=== PATIENT | male | born 1955 | race Caucasian/White ===

== ENCOUNTER 2023-04-10 21:05 | Inpatient (IN) | payer MEDICARE ==
--- NOTE | 2023-04-10 21:45 | ED ---
General Adult HPI <Carson Lloyd - Last Filed: 04/10/23 23:13> - General Source: patient, family, EMS, RN notes reviewed, old records reviewed Mode of arrival: EMS Limitations: no limitations <Flip Muro - Last Filed: 04/11/23 06:42> - General Chief complaint: Altered Mental Status Stated complaint: Fall Time Seen by Provider: 04/10/23 21:22 - History of Present Illness Initial comments: Patient is a 67-year-old male who presents with department for a suspected syncopal episode and unresponsiveness. Patient was at a [employer] and ate a piece of pizza. States he felt "ill" which include nausea and feeling slightly lightheaded. He stood up and then experienced a syncopal episode falling from a standing position to the ground. Patient apparently was unresponsive per and bystanders and there was concern that he was not breathing and did not have pulses. Bystanders started CPR and completed approximately 2 minutes. When EMS arrived, patient was combative, alert, orie nted and breathing on his own. He does not remember what happened other than he fell to the ground. He endorses some pain over his chest from where chest compressions were done. He also endorses the lip laceration. Unknown last tetanus. Also has a laceration to left side of his nasal bridge. His no other acute complaints at this time. States he feels improved at this time. States only significant past medical history is hypertension. Is not on blood thinners. No acute complaints at this time. No recent long distance travel l. No leg edema. No fevers, chills, cough. No AED was present and no shocks were ever administered. He was within normal limits for EMS. Patient did have u rinary incontinence. No seizure history. No history of alcohol abuse. (Flip Muro) - Related Data Allergies Allergy/AdvReac Type Severity Reaction Status Date / Time shellfish derived [Shellfish] Allergy Anaphylaxis Verified 04/10/23 21:13 Review of Systems ROS Other: All systems not noted in ROS Statement are negative. <Carson Lloyd - Last Filed: 04/10/23 23:13> ROS Other: All systems not noted in ROS Statement are negative. <Flip Muro - Last Filed: 04/11/23 06:42> ROS Statement: Those systems with pertinent positive or pertinent negative responses have been documented in the HPI. Review of Systems: CONST: Denies fever EYES: Denies blurry vision ENT: Denies nasal congestion C/V: Endorses chest wall pain RESP: Denies shortness of breath GI: Denies abdominal pain : Denies dysuria SKIN: Endorses lip laceration, nasal bridge laceration. MSK: Denies joint pain. NEURO: Denies headache (Flip Muro) Past Medical History Past Medical History: No Reported History Past Surgical History: No Surgical Hx Reported Past Psychological History: No Psychological Hx Reported Past Alcohol Use History: Occasional Past Drug Use History: Marijuana <Flip Muro - Last Filed: 04/11/23 06:42> General Exam Limitations: no limitations <Flip Muro - Last Filed: 04/11/23 06:42> - General Exam Comments Initial Comments: General: Appears in no acute distress. HEAD: Negative Bradley sign. Negative raccoon eyes. Patient does have a abrasion/skin tear to the left nasal bridge. Patient also has laceration to the right upper lip. EYES: PERRLA, EOMI, conjunctiva normal, no discharge. ENT: Hearing grossly intact, normal posterior oropharynx. False teeth present. Upper laceration of the right upper lip. RESPIRATORY: Clear breath sounds bilaterally. No wheezes, rales, or rhonchi. C/V: Regular rate and rhythm. S1 and S2 auscultated, no edema, peripheral pulses 2+ and intact throughout ABD: Abd is soft, nontender, nondistended EXT: Normal range of motion, no obvious deformity. Pelvis is stable. No midline cervical, thoracic, lumbar spine tenderness to palpation. SKIN: No rashes or lesions observed on exposed skin. Lacerations on the face. NEURO: Alert and oriented x 4. Cranial nerves II-XII intact. No focal sensory or strength deficits. GCS of 15. NIH of 0. (Flip Muro) Course Vital Signs 04/10/23 21:06 Temperature 97.6 F Pulse Rate 85 Respiratory 18 Rate Blood Pressure 150/82 Procedures - Laceration Laceration #1 Site: lip Size (cm): 3 Description: linear Depth: simple, single layer Anesthetic Used: lidocaine 1%, with epi Anesthesia Technique: nerve block Amount (mls): 2 (infraorbital) Pre-repair: wound explored, irrigated extensively, deep structures intact Type of Sutures: nylon Size of Sutures: 6-0 Number of Sutures: 7 Technique: simple, interrupted Patient Tolerated Procedure: well, no complications Laceration #2 Indication: laceration Site: face Size (cm): 1 Description: irregular Depth: simple, single layer Anesthetic Used: lidocaine 1%, with epi Anesthesia Technique: local infiltration Amount (mls): 1 Pre-repair: wound explored, irrigated extensively, deep structures intact Type of Sutures: nylon Size of Sutures: 6-0 Number of Sutures: 2 Patient Tolerated Procedure: well, no complications <Carson Lloyd - Last Filed: 04/10/23 23:13> Medical Decision Making - Lab Data Result diagrams: 04/10/23 21:29 04/10/23 21:29 <Carson Lloyd - Last Filed: 04/10/23 23:13> - Lab Data Result diagrams: 04/10/23 21:29 04/10/23 21:29 - EKG Data -: EKG Interpreted by Me <Flip Muro - Last Filed: 04/11/23 06:42> - Medical Decision Making Was pt. sent in by a medical professional or institution (, PA, [facility], urgent care, hospital, or snf...) When possible be specific @ -No Did you speak to anyone other than the patient for history (EMS, parent, family, police, friend...)? What history was obtained from this source @ -No Did you review nursing and triage notes (agree or disagree)? Why? @ -I reviewed and agree with nursing and triage notes Were old charts reviewed (outside hosp., previous admission, EMS record, old EKG, old radiological studies, urgent care reports/EKG's, snf records)? Report findings @ -No old charts were reviewed Differential Diagnosis (chest pain, altered mental status, abdominal pain women, abdominal pain men, vaginal bleeding, weakness, fever, dyspnea, syncope, headache, dizziness, GI bleed, back pain, seizure, CVA, palpatations, mental health, musculoskeletal)? @ -Differential Altered Mental Status: Hypoglycemia, DKA, hypercapnia, ETOH, overdose, CO poisoning, trauma, myxedema coma, HTN encephalopathy, infection, encephalitis, psychosis, intercranial hemorrhage, hepatic encephalopathy, meningitis, CVA, this is not meant to be an all-inclusive list EKG interpreted by me (3pts min.). @ -As above X-rays interpreted by me (1pt min.). @ -Chest x-ray reveals possible atelectasis in the left lung base. Pelvis x- ray shows no obvious acute finding. CT interpreted by me (1pt min.). @ -CT brain, C-spine shows no obvious acute intracranial process or cervical spine injury. Face CT shows no obvious acute injury. CT angiogram of the aorta reveals no evidence of PE, aortic injury or dissection. No other obvious findings. U/S interpreted by me (1pt. min.). @ -None done What testing was considered but not performed or refused? (CT, X-rays, U/S, labs)? Why? @ -None What meds were considered but not given or refused? Why? @ -None Did you discuss the management of the patient with other professionals (professionals i.e. DrJonathan, PA, [facility], lab, RT, psych nurse, health care social worker, lithopone mill worker, teacher, medical officer psychiatry, supervisor case loading)? Give summary @ -Discussed with Dr. Thorpe of ICU who accepted the patient to the ICU. Was in agreement with the plan. I spoke with cardiology on-call Dr. Chisholm was in agreement with management as well. I spoke with the admitting team, JANEL Bernal of [facility] call who accepted the patient. Was smoking cessation discussed for >3mins.? @ -No Was critical care preformed (if so, how long)? @ -yes, 35 minutes Were there social determinants of health that impacted care today? How? (Homelessness, low income, unemployed, alcoholism, drug addiction, transportation, low edu. Level, literacy, decrease access to med. care, residential, rehab)? @ -No Was there de-escalation of care discussed even if they declined (Discuss DNR or withdrawal of care, Hospice)? DNR status @ -No What co-morbidities impacted this encounter? (DM, HTN, Smoking, COPD, CAD, Cancer, CVA, ARF, Chemo, Hep., AIDS, mental health diagnosis, sleep apnea, morbid obesity)? @ -None Was patient admitted / discharged? Hospital course, mention meds given and route, prescriptions, significant lab abnormalities, going to OR and other pertinent info. @ -Patient presents as possible syncopal episode versus unresponsiveness episode versus cardiac arrest. Patient did have CPR performed at the scene by bystanders however when medical office rep arrived patient was alert and responsive. Vital signs are currently within except for limits. Only complaint is foot pain, as well as chest wall pain from the CPR. We will obtain a broad workup. Vital signs within acceptable limits. This included CT imaging of the chest and pelvis as well as brain. Patient was in agreement this plan. He will be given a 1 L fluid bolus. We'll continue with continuous cardiac monitoring. He was in agreement with this plan. EKG showed no signs of acute ischemia.Imaging unremarkable. Patient's laboratory studies reveal a leukocytosis of 24.4. Lactic acidosis of 3.8. Troponin undetectable. Remainder the labs unremarkable. Alcohol level is slightly elevated to 25. I discussed results with the patient. He remains asymptomatic. Patient's lip and face were repaired by assisting mid-level provider. He'll be admitted to the ICU due to the concern for possible out of hospital cardiac arrest. His expressed no arrhythmias documented V. tach or V. fib here. Occasional PVC seen on the monitor. Patient was agreement this plan. He is resting comfortably with no acute complaints. Due to the patient's white count and lactic acidosis, I will cover the patient for sepsis at this time. Blood cultures sent. Patient started on vancomycin and cefepime. Patient given 2 L fluid bolus and started on maintenance fluids at 130 mL an hour. Patient met sepsis criteria at 2252. Discussed with Dr. Thorpe of ICU who accepted the patient to the ICU. Was in agreement with the plan. I spoke with cardiology on-call Dr. Chisholm was in agreement with management as well. I spoke with the admitting team, JANEL Bernal of [facility] call who accepted the patient. Undiagnosed new problem with uncertain prognosis? @ -No Drug Therapy requiring intensive monitoring for toxicity (Heparin, Nitro, Insulin, Cardizem)? @ -No Were any procedures done? @ -No Diagnosis/symptom? @ -Sepsis, syncope, possible on possible out of hospital cardiac arrest Acute, or Chronic, or Acute on Chronic? @ -Acute Uncomplicated (without systemic symptoms) or Complicated (systemic symptoms)? @ -Complicated Side effects of treatment? @ -none Exacerbation, Progression, or Severe Exacerbation] @ -no Poses a threat to life or bodily function? @ -Yes Diagnosis/symptom? @ -Fall, lip laceration, nose laceration Acute, or Chronic, or Acute on Chronic? @ -Acute Uncomplicated (without systemic symptoms) or Complicated (systemic symptoms)? @ -Uncomplicated Side effects of treatment? @ -none Exacerbation, Progression, or Severe Exacerbation] @ -no Poses a threat to life or bodily function? @ -no (Flip Muro) - Lab Data Lab Results 04/10/23 04/10/23 04/10/23 Range/Units 21:29 21:29 21:29 WBC 24.4 H (3.8-10.6) k/uL RBC 5.11 (4.30-5.90) m/uL Hgb 17.0 (13.0-17.5) gm/dL Hct 49.9 (39.0-53.0) % MCV 97.6 (80.0-100.0) fL MCH 33.2 (25.0-35.0) pg MCHC 34.1 (31.0-37.0) g/dL RDW 12.5 (11.5-15.5) % Plt Count 236 (150-450) k/uL MPV 10.2 Neutrophils % 86 % Lymphocytes % 8 % Monocytes % 4 % Eosinophils % 1 % Basophils % 0 % Neutrophils # 21.0 H (1.3-7.7) k/uL Lymphocytes # 2.0 (1.0-4.8) k/uL Monocytes # 0.9 (0-1.0) k/uL Eosinophils # 0.2 (0-0.7) k/uL Basophils # 0.1 (0-0.2) k/uL PT 10.3 (10.0-12.5) sec INR 0.9 (<1.2) APTT 22.1 (22.0-30.0) sec Sodium 141 (137-145) mmol/L Potassium 3.6 (3.5-5.1) mmol/L Chloride 107 (98-107) mmol/L Carbon Dioxide 18 L (22-30) mmol/L Anion Gap 16 mmol/L BUN 19 (9-20) mg/dL Creatinine 1.27 H (0.66-1.25) mg/dL Est GFR (CKD-EPI)AfAm 68 (>60 ml/min/1.73 sqM) Est GFR (CKD-EPI)NonAf 59 (>60 ml/min/1.73 sqM) Glucose 175 H (74-99) mg/dL Lactic Ac Sepsis Rflx Plasma Lactic Acid Alvaro (0.7-2.0) mmol/L Calcium 9.0 (8.4-10.2) mg/dL Total Bilirubin 0.6 (0.2-1.3) mg/dL AST 86 H (17-59) U/L ALT 110 H (4-49) U/L Alkaline Phosphatase 84 (38-126) U/L Ammonia (<30) umol/L Troponin I (0.000-0.034) ng/mL NT-Pro-B Natriuret Pep 29 pg/mL Total Protein 7.1 (6.3-8.2) g/dL Albumin 4.5 (3.5-5.0) g/dL Urine Color Urine Appearance (Clear) Urine pH (5.0-8.0) Ur Specific Mobile (1.001-1.035) Urine Protein (Negative) Urine Glucose (UA) (Negative) Urine Ketones (Negative) Urine Blood (Negative) Urine Nitrite (Negative) Urine Bilirubin (Negative) Urine Urobilinogen (<2.0) mg/dL Ur Leukocyte Esterase (Negative) Urine Opiates Screen (NotDetected) Ur Oxycodone Screen (NotDetected) Urine Methadone Screen (NotDetected) Ur Barbiturates Screen (NotDetected) U Tricyclic Antidepress (NotDetected) Ur Phencyclidine Scrn (NotDetected) Ur Amphetamines Screen (NotDetected) U Methamphetamines Scrn (NotDetected) U Benzodiazepines Scrn (NotDetected) Urine Cocaine Screen (NotDetected) U Marijuana (THC) Screen (NotDetected) Serum Alcohol 25 mg/dL Influenza Type A (PCR) (Not Detectd) Influenza Type B (PCR) (Not Detectd) RSV (PCR) (Not Detectd) SARS-CoV-2 (PCR) (Not Detectd) 04/10/23 04/10/23 04/10/23 Range/Units 21:29 21:29 22:11 WBC (3.8-10.6) k/uL RBC (4.30-5.90) m/uL Hgb (13.0-17.5) gm/dL Hct (39.0-53.0) % MCV (80.0-100.0) fL MCH (25.0-35.0) pg MCHC (31.0-37.0) g/dL RDW (11.5-15.5) % Plt Count (150-450) k/uL MPV Neutrophils % % Lymphocytes % % Monocytes % % Eosinophils % % Basophils % % Neutrophils # (1.3-7.7) k/uL Lymphocytes # (1.0-4.8) k/uL Monocytes # (0-1.0) k/uL Eosinophils # (0-0.7) k/uL Basophils # (0-0.2) k/uL PT (10.0-12.5) sec INR (<1.2) APTT (22.0-30.0) sec Sodium (137-145) mmol/L Potassium (3.5-5.1) mmol/L Chloride (98-107) mmol/L Carbon Dioxide (22-30) mmol/L Anion Gap mmol/L BUN (9-20) mg/dL Creatinine (0.66-1.25) mg/dL Est GFR (CKD-EPI)AfAm (>60 ml/min/1.73 sqM) Est GFR (CKD-EPI)NonAf (>60 ml/min/1.73 sqM) Glucose (74-99) mg/dL Lactic Ac Sepsis Rflx Y Plasma Lactic Acid Alvaro 3.8 H* (0.7-2.0) mmol/L Calcium (8.4-10.2) mg/dL Total Bilirubin (0.2-1.3) mg/dL AST (17-59) U/L ALT (4-49) U/L Alkaline Phosphatase (38-126) U/L Ammonia 10 (<30) umol/L Troponin I <0.012 (0.000-0.034) ng/mL NT-Pro-B Natriuret Pep pg/mL Total Protein (6.3-8.2) g/dL Albumin (3.5-5.0) g/dL Urine Color Urine Appearance (Clear) Urine pH (5.0-8.0) Ur Specific Mobile (1.001-1.035) Urine Protein (Negative) Urine Glucose (UA) (Negative) Urine Ketones (Negative) Urine Blood (Negative) Urine Nitrite (Negative) Urine Bilirubin (Negative) Urine Urobilinogen (<2.0) mg/dL Ur Leukocyte Esterase (Negative) Urine Opiates Screen (NotDetected) Ur Oxycodone Screen (NotDetected) Urine Methadone Screen (NotDetected) Ur Barbiturates Screen (NotDetected) U Tricyclic Antidepress (NotDetected) Ur Phencyclidine Scrn (NotDetected) Ur Amphetamines Screen (NotDetected) U Methamphetamines Scrn (NotDetected) U Benzodiazepines Scrn (NotDetected) Urine Cocaine Screen (NotDetected) U Marijuana (THC) Screen (NotDetected) Serum Alcohol mg/dL Influenza Type A (PCR) (Not Detectd) Influenza Type B (PCR) (Not Detectd) RSV (PCR) (Not Detectd) SARS-CoV-2 (PCR) (Not Detectd) 04/10/23 04/10/23 04/11/23 Range/Units 23:18 23:41 00:35 WBC (3.8-10.6) k/uL RBC (4.30-5.90) m/uL Hgb (13.0-17.5) gm/dL Hct (39.0-53.0) % MCV (80.0-100.0) fL MCH (25.0-35.0) pg MCHC (31.0-37.0) g/dL RDW (11.5-15.5) % Plt Count (150-450) k/uL MPV Neutrophils % % Lymphocytes % % Monocytes % % Eosinophils % % Basophils % % Neutrophils # (1.3-7.7) k/uL Lymphocytes # (1.0-4.8) k/uL Monocytes # (0-1.0) k/uL Eosinophils # (0-0.7) k/uL Basophils # (0-0.2) k/uL PT (10.0-12.5) sec INR (<1.2) APTT (22.0-30.0) sec Sodium (137-145) mmol/L Potassium (3.5-5.1) mmol/L Chloride (98-107) mmol/L Carbon Dioxide (22-30) mmol/L Anion Gap mmol/L BUN (9-20) mg/dL Creatinine (0.66-1.25) mg/dL Est GFR (CKD-EPI)AfAm (>60 ml/min/1.73 sqM) Est GFR (CKD-EPI)NonAf (>60 ml/min/1.73 sqM) Glucose (74-99) mg/dL Lactic Ac Sepsis Rflx Plasma Lactic Acid Alvaro 1.5 (0.7-2.0) mmol/L Calcium (8.4-10.2) mg/dL Total Bilirubin (0.2-1.3) mg/dL AST (17-59) U/L ALT (4-49) U/L Alkaline Phosphatase (38-126) U/L Ammonia (<30) umol/L Troponin I (0.000-0.034) ng/mL NT-Pro-B Natriuret Pep pg/mL Total Protein (6.3-8.2) g/dL Albumin (3.5-5.0) g/dL Urine Color Colorless Urine Appearance Clear (Clear) Urine pH 6.0 (5.0-8.0) Ur Specific Mobile >1.050 H (1.001-1.035) Urine Protein Trace H (Negative) Urine Glucose (UA) Negative (Negative) Urine Ketones Negative (Negative) Urine Blood Negative (Negative) Urine Nitrite Negative (Negative) Urine Bilirubin Negative (Negative) Urine Urobilinogen <2.0 (<2.0) mg/dL Ur Leukocyte Esterase Negative (Negative) Urine Opiates Screen Not Detected (NotDetected) Ur Oxycodone Screen Not Detected (NotDetected) Urine Methadone Screen Not Detected (NotDetected) Ur Barbiturates Screen Not Detected (NotDetected) U Tricyclic Antidepress Not Detected (NotDetected) Ur Phencyclidine Scrn Not Detected (NotDetected) Ur Amphetamines Screen Not Detected (NotDetected) U Methamphetamines Scrn Not Detected (NotDetected) U Benzodiazepines Scrn Not Detected (NotDetected) Urine Cocaine Screen Not Detected (NotDetected) U Marijuana (THC) Screen Detected H (NotDetected) Serum Alcohol mg/dL Influenza Type A (PCR) Not Detected (Not Detectd) Influenza Type B (PCR) Not Detected (Not Detectd) RSV (PCR) Not Detected (Not Detectd) SARS-CoV-2 (PCR) Not Detected (Not Detectd) - EKG Data EKG Comments: 12-lead Electrocardiogram Interpretation Note EKG was reviewed and interpreted by myself. 12-lead ECG performed at 2112 is interpreted by me as revealing normal sinus rhythm at a rate of 91 beats per minute. Left axis deviation. NM intervals 146 ms, QRS durations 118 ms, QTc is 426 ms. Left anterior fascicular block. There were no ST or T wave abnormalities to suggest myocardial ischemia or injury. R wave progression across the precordium was satisfactory. By my interpretation this EKG is non- diagnostic for acute ischemia. 12-lead Electrocardiogram Interpretation Note EKG was reviewed and interpreted by myself. 12-lead ECG performed at 2320 is interpreted by me as revealing normal sinus rhythm at a rate of 91 beats per minute. Left axis deviation. NM interval is 151 ms, QRS duration is 118 ms, QTc is 413 ms. Left anterior fascicular block present.. There were no ST or T wave abnormalities to suggest myocardial ischemia or injury. R wave progression across the precordium was satisfactory. By my interpretation this EKG is non- diagnostic for acute ischemia. (Flip Muro) Critical Care Time Critical Care Time: Yes Total Critical Care Time: 35 <Flip Muro - Last Filed: 04/11/23 06:42> Disposition <Carson Lloyd - Last Filed: 04/10/23 23:13> Time of Disposition: 22:59 <Flip Muro - Last Filed: 04/11/23 06:42> Clinical Impression: Syncope, Cardiac arrest, Sepsis, Laceration, Fall Disposition: ADMITTED IP TO THIS HOSP Condition: Stable
[2023-04-10 21:46] LABS: Basophils # (A) 0.1 k/uL (0-0.2); Basophils % (A) 0 %; Eosinophils # (A) 0.2 k/uL (0-0.7); Eosinophils % (A) 1 %; HCT 49.9 % (39.0-53.0); Lymphocytes % (A) 8 %; MCH 33.2 pg (25.0-35.0); MCHC 34.1 g/dL (31.0-37.0); MCV 97.6 fL (80.0-100.0); Mean Platelet Volume 10.2; Monocytes # (A) 0.9 k/uL (0-1.0); Monocytes % (A) 4 %; Neutrophils % (A) 86 %; Platelet Count 236 k/uL (150-450); RBC 5.11 m/uL (4.30-5.90); RDW 12.5 % (11.5-15.5); WBC 24.4 k/uL (3.8-10.6)
[2023-04-10 21:58] LABS: ALT 110 U/L (4-49); AST 86 U/L (17-59); African American GFR (CKD) 68 (>60 ml/min/1.73 sqM); Albumin 4.5 g/dL (3.5-5.0); Alcohol 25 mg/dL; Alkaline Phosphatase 84 U/L (38-126); Anion Gap 16 mmol/L; Blood Urea Nitrogen 19 mg/dL (9-20); Carbon Dioxide 18 mmol/L (22-30); Chloride 107 mmol/L (98-107); Glucose 175 mg/dL (74-99); Non-African American GFR(CKD) 59 (>60 ml/min/1.73 sqM); Potassium 3.6 mmol/L (3.5-5.1); Sodium 141 mmol/L (137-145); Total Bilirubin 0.6 mg/dL (0.2-1.3); Total Protein 7.1 g/dL (6.3-8.2)
[2023-04-10 22:06] LABS: NT-Pro-B-Type Natriuretic Pept 29 pg/mL
[2023-04-10 22:10] LABS: Lactic Acid, Venous 3.8 mmol/L (0.7-2.0)
--- NOTE | 2023-04-10 22:15 | XR ---
EXAMINATION TYPE: XR chest 2V DATE OF EXAM: 04/10/2023 COMPARISON: NONE HISTORY: Fall TECHNIQUE: Frontal and lateral views of the chest are obtained. FINDINGS: There is is patchy left basilar opacity. Right lung is clear. The cardiac silhouette size is within normal limits. The osseous structures are intact. IMPRESSION: Patchy left basilar opacity favors atelectasis.
--- NOTE | 2023-04-10 22:19 | CT ---
EXAMINATION TYPE: CT brain cspine wo con, CT facial bones wo con DATE OF EXAM: 04/10/2023 COMPARISON: NONE HISTORY: fall, no LOC, laceration on tip lip CT DLP: 1254.4 mGycm. Automated Exposure Control for Dose Reduction was Utilized. TECHNIQUE: CT scan of the head and cervical spine are performed without contrast. FINDINGS: There is no acute intracranial hemorrhage, mass effect, or midline shift identified. The ventricles and sulci are within normal limits in size. Lynch-white matter differentiation is maintai cameron. The calvarium is intact. Some cerumen in the bilateral external auditory canals is incidentally noted. The mandible is intact. The temporomandibular joints are maintained bilaterally. The nasal bones are intact. The orbital floors and martinez are intact. The globes are intact bilaterally. Intraconal fat is preserved. The maxilla is intact. The pterygoid plates are intact. Visualized paranasal sinuses are grossly clear. Cervical spine is visualized in its entirety from C1 through upper thoracic levels and demonstrates s light scoliotic curvature positioning without evidence of acute fracture or dislocation. Prevertebra l soft tissue appears within normal limits. The C1-C2 articulation is unremarkable. Vertebral body h eights are maintained. Mild disc space narrowing with mild to moderate spurring at C5-C6 and C6-C7 le vels is present. Posterior spur disc complex effacing the thecal sac at C6-C7 level. Axial images marshal w normal-sized thyroid gland. Lung apices are clear without pneumothorax. IMPRESSION: 1. There is no acute fracture or dislocation evident in the cervical spine. 2. No acute intracranial hemorrhage or midline shift is seen. 3. No acute displaced facial bone fracture.
[2023-04-10 22:21] LABS: INR 0.9 (<1.2); Partial Thromboplastin Time 22.1 sec (22.0-30.0); Prothrombin Time 10.3 sec (10.0-12.5)
--- NOTE | 2023-04-10 22:25 | XR ---
EXAMINATION TYPE: XR pelvis AP view DATE OF EXAM: 04/10/2023 COMPARISON: None HISTORY: Fall, pain TECHNIQUE: AP pelvis FINDINGS: Femoral heads articulate with the acetabulum. No acute fractures are evident. Symphysis pub is sacroiliac joints are normal. Contrast within the ureters and urinary latter. IMPRESSION: 1. Unremarkable AP pelvis
--- NOTE | 2023-04-10 22:36 | CT ---
EXAMINATION TYPE: CT angio thor/abd pel aorta DATE OF EXAM: 04/10/2023 COMPARISON: None HISTORY: fall, diaphoretic, chest pain CT DLP: 1487.1 mGycm. Automated Exposure Control for Dose Reduction was Utilized. CONTRAST: CTA scan of the thorax, abdomen and pelvis is performed without and with IV Contrast, patient injecte d with 100 mL of Isovue 370. Three-D reconstructed images are created on an independent workstation a nd reviewed. FINDINGS: Vascular: Noncontrast images show no suspicious hyperdense material to suggest intramural hematoma. N ormal three-vessel origin from the aortic arch without significant plaque or stenosis. Patent celiac artery and SMA along with bilateral single renal arteries and [place]. Mild peripheral plaque in the infr arenal abdominal aorta. No linear hypodensity to suggest dissection. No significant stenosis includin g the iliac and femoral artery branch vessels bilaterally. LUNGS: Dependent opacity bilateral lower lobes favors atelectasis. Mild linear scarring or atelectasi s in the lingula. No pleural effusion or pneumothorax seen bilaterally. MEDIASTINUM: There are no greater than 1 cm hilar or mediastinal lymph nodes. No pericardial effusi on is seen. No cardiomegaly. LIVER/GB: No significant abnormality is appreciated. PANCREAS: No significant abnormality is seen. SPLEEN: No significant abnormality is seen. ADRENALS: No significant abnormality is seen. KIDNEYS: No significant abnormality is seen. BOWEL: Diverticulosis in the left and sigmoid colon is present. No acute diverticulitis. No abnormal small or large bowel dilatation. GENITAL ORGANS: Enlarged prostate consistent with BPH. LYMPH NODES: No greater than 1cm abdominal or pelvic lymph nodes are appreciated. OSSEOUS STRUCTURES: Moderate narrowing of both hip joints. Occasional scattered tiny sclerotic focus throughout the thoracolumbar spine, nonspecific finding favored benign bone islands.. OTHER: No significant abnormality. IMPRESSION: No acute postmenopausal finding in particular No acute osseous fracture, abnormal fluid c ollection, or evidence of solid organ injury in the thorax, abdomen, or pelvis.
[2023-04-10] MEDS ORDERED: VANCOMYCIN IV PER PHARMACY 1 EACH MISC MISCELLANE PRN (22:54)
[2023-04-10] MEDS: LIDOCAINE 1%-EPI 1:100,000 50 ML VIAL SQ STA (23:07)
[2023-04-10] MEDS: SODIUM CHLORIDE 0.9% 1,000 ML IV ONE (23:08)
[2023-04-10] MEDS: DIPH,PERTUS(ACELL)TETVAC-LF 0.5 ML VIAL IM ONE (23:09)
[2023-04-10 23:52] LABS: Appearance,Urine Clear (Clear); Bilirubin,Urine Negative (Negative); Blood,Urine Negative (Negative); Color,Urine Colorless; Glucose,Urine (UA) Negative (Negative); Ketones,Urine Negative (Negative); Leukocyte Esterase,Urine Negative (Negative); Nitrite,Urine Negative (Negative); Protein,Urine Trace (Negative); Urobilinogen,Urine <2.0 mg/dL (<2.0)
[2023-04-10 23:53] LABS: Specific Gravity,Urine >1.050 (1.001-1.035)
[2023-04-10 23:55] LABS: Amphetamine Screen,Urine Not Detected (NotDetected); Barbiturate Screen,Urine Not Detected (NotDetected); Benzodiazepines Screen,Urine Not Detected (NotDetected); Cocaine Screen,Urine Not Detected (NotDetected); Methadone Screen, Urine Not Detected (NotDetected); Opiate Screen,Urine Not Detected (NotDetected); Oxycodone Screen, Urine Not Detected (NotDetected); Phencyclidine Screen,Urine Not Detected (NotDetected); Tricyclic Antidepressant,Urine Not Detected (NotDetected); Urn Cannabinoid Scrn Detected (NotDetected)
[2023-04-11] MEDS ORDERED: NALOXONE 0.4 MG/ML 1 ML VIAL IV PRN (00:20)
[2023-04-11] MEDS: CEFEPIME 2 GM in SODIUM CHLORIDE 0.9% 100 ML IVPB STA (00:27)
[2023-04-11] MEDS: SODIUM CHLORIDE 0.9% 1,000 ML IV STA ×2 (00:27→02:48)
[2023-04-11] MEDS: ONDANSETRON 4 MG/2 ML VIAL IVP STA (02:19)
[2023-04-11] MEDS: VANCOMYCIN 1,500 MG in SODIUM CHLORIDE 0.9% 500 ML 500 ML IVPB STA (02:48)
[2023-04-11] MEDS: HEPARIN SODIUM,PORCINE 5,000 UNIT/ML 1 ML VIAL SQ SCH (08:00)
[2023-04-11] MEDS: CEFEPIME 2 GM in SODIUM CHLORIDE 0.9% 100 ML IVPB SCH (08:01)
--- NOTE | 2023-04-11 08:58 | P.HPIM ---
History of Present Illness This is a pleasant 67 years old male with no significant past medical history who found unresponsive at home and underwent CPR for 2 minutes became combative and then he came to the emergency breathing on his own. Patient is lying in bed comfortable, fully awake and oriented currently calm. Information were obtained from the patient and at bedside Patient was not feeling well yesterday and he had some nausea and little vo miting, he went get up and wanted to go outside he felt lightheadedness and then he collapsed on the floor and stop breathing as per her friend who was with him at the beginning so CPR was started and EMS were called, and then within a few minutes patient came back and he was combative, he P Yi himself however he was still confused and he woke up in the ambulance Patient himself cannot recall what happened. However he still feeling some nausea and vomited little bit this morning but he denies chest pain dyspnea coughing. No headache dizziness weakness numbness. No urinary complaints. No abdominal pain or diarrhea. He denies smoking alcohol and he smokes marijuana at times. Vitals currently looks stable and he is saturating 93% on room air, labs were unremarkable including urine analysis, INR, His white cell count is elevated 24,000, as per at bedside his WBC always been elevated Creatinine is slightly up at 1.27, liver enzymes slightly elevated but bilirubin is within the reference range Troponins 2 are negative at 0.016. Influenza A and type B, RSV, SARS (coronavirus) are and detected ProBNP 29 EKG showing normal sinus rhythm at [address]-T changes and QTC 413 Pelvic x-ray: No acute fracture CT of the head and neck is negative for acute process fracture, CT of the face: No acute fracture or dislocation, no displaced facial bone fracture. Chest x-rays showing patchy left basilar opacity mostly atelectasis Patient is started on cefepime and IV vancomycin and admitted to the ICU with cardiology, pulmonary/critical care. Review of Systems Review of systems CONSTITUTIONAL: No fever, no malaise, no fatigue. HEENT: No recent visual problems or hearing problems. Denied any sore throat. CARDIOVASCULAR: No orthopnea, PND, no palpitations, no syncope. PULMONARY: No shortness of breath, no cough, no hemoptysis. GASTROINTESTINAL: No diarrhea, no nausea, no vomiting, no abdominal pain. Nor moactive bowel sounds. NEUROLOGICAL: No headaches, no weakness, no numbness. HEMATOLOGICAL: Denies any bleeding or petechiae. GENITOURINARY: Denies any burning micturition, frequency, or urgency. MUSCULOSKELETAL/RHEUMATOLOGICAL: Denies any joint pain, swelling, or any muscle pain. ENDOCRINE: Denies any polyuria or polydipsia. Past Medical History Past Medical History: No Reported History Past Surgical History: No Surgical Hx Reported Past Psychological History: No Psychological Hx Reported Past Alcohol Use History: Occasional Past Drug Use History: Marijuana Medications and Allergies Allergies Allergy/AdvReac Type Severity Reaction Status Date / Time shellfish derived [Shellfish] Allergy Anaphylaxis Verified 04/10/23 21:13 Physical Exam Vitals: Vital Signs Temp Pulse Resp BP 04/10/23 21:06 97.6 F 85 18 150/82 Intake and Output 04/10/23 04/11/23 04/11/23 22:59 06:59 14:59 Other: Weight 88.451 kg GENERAL: The patient is alert and oriented x3, not in any acute distress. Well developed, well nourished. -HEENT: Pupils are round and equally reacting to light. EOMI. No scleral icterus. No conjunctival pallor. Normocephalic, atraumatic. No pharyngeal erythema. No thyromegaly. Mild bruise of the lip CARDIOVASCULAR: S1 and S2 present. No murmurs, rubs, or gallops. PULMONARY: Chest is clear to auscultation, no wheezing , no crackles. ABDOMEN: Soft, nontender, nondistended, normoactive bowel sounds. No palpable organomegaly. MUSCULOSKELETAL: No joint swelling or deformity. EXTREMITIES: No cyanosis, clubbing, or pedal edema. NEUROLOGICAL: Gross neurological examination did not reveal any focal deficits. SKIN: No rashes. no petechiae. Results CBC & Chem 7: 04/10/23 21:29 04/10/23 21:29 Labs: Abnormal Lab Results - Last 24 Hours (Table) 04/10/23 04/10/23 04/10/23 Range/Units 21:29 21:29 21:29 WBC 24.4 H (3.8-10.6) k/uL Neutrophils # 21.0 H (1.3-7.7) k/uL Carbon Dioxide 18 L (22-30) mmol/L Creatinine 1.27 H (0.66-1.25) mg/dL Glucose 175 H (74-99) mg/dL Plasma Lactic Acid Alvaro 3.8 H* (0.7-2.0) mmol/L AST 86 H (17-59) U/L ALT 110 H (4-49) U/L Ur Specific [place] (1.001-1.035) Urine Protein (Negative) U Marijuana (THC) Screen (NotDetected) 04/10/23 Range/Units 23:18 WBC (3.8-10.6) k/uL Neutrophils # (1.3-7.7) k/uL Carbon Dioxide (22-30) mmol/L Creatinine (0.66-1.25) mg/dL Glucose (74-99) mg/dL Plasma Lactic Acid Alvaro (0.7-2.0) mmol/L AST (17-59) U/L ALT (4-49) U/L Ur Specific [place] >1.050 H (1.001-1.035) Urine Protein Trace H (Negative) U Marijuana (THC) Screen Detected H (NotDetected) Assessment and Plan Assessment: periods Of unresponsiveness suspicious for cardiac arrest status post CPR, associated with combativeness confusion and urine incontinence, rule out seizure as well Nausea and vomiting Chronic leukocytosis as per history Mild acute kidney injury Mild transaminitis Plan: Continue monitoring the ICU Start gentle hydration Patient was started on antibiotic in the emergency room cefepime and IV vancomycin. Follow-up blood culture. We will check for calcitonin and CRP, currently there is no strong evidence of infection and patient is been afebrile Continue with antiemetic Check echocardiogram Cardiology and pulmonary consult We will consult neurology DVT prophylaxis: Heparin GI prophylaxis Pepcid Prognosis is guarded
[2023-04-11 09:08] LABS: Glucose,Whole Blood 129 mg/dL (70-110)
[2023-04-11] MEDS: ONDANSETRON 4 MG/2 ML VIAL IVP PRN (09:08)
[2023-04-11] MEDS: FAMOTIDINE 20 MG/2 ML VIAL IV SCH (09:08)
[2023-04-11] MEDS: SODIUM CHLORIDE 0.9% 1,000 ML IV SCH (09:09)
--- NOTE | 2023-04-11 12:26 | P.CNPUL ---
History of Present Illness Consult date: 04/11/23 Requesting physician: Buck Osei Reason for consult: other (Critical care management) Chief complaint: Syncope History of present illness: This is a 67-year-old male patient with a known history of hypertension and occasional alcohol use, marijuana use. Last evening the patient had been at a [employer] when he started not feeling well. He stood up to go to the restroom however he passed out and hit his face on the ground. Bystanders were concerned that he was not breathing and pulseless and began CPR for approximately 2 minutes. When EMS arrived the patient was awake, alert and combative. His stated he did utilize marijuana that day which is not unusual in that he did have a drink but this happen before he finished one complete drink. His x-ray revealed a patchy left basilar opacity versus atelectasis. Computed tomography scan of the face and head revealed no acute fracture or dislocation in the cervical spine. No acute intracranial hemorrhage or midline shift. No acute displaced facial bone fractures. He does have a lip and nasal lacerations. T scan of the chest revealed no evidence of aneurysm no acute osseous fractures. No evidence of solid organ injury. Pelvis x-ray was unremarkable. EKG revealed sinus rhythm with no significant ST or T wave abnormalities. White count 24.4. Hemoglobin 17.0. INR 0.9. Sodium 141. Potassium 3.6. Bicarb 18. BUN 19. Creatinine 1.27. Glucose 175. AST 86. ALT 110. Troponins negative. C-reactive protein 3.3. Urinalysis clean. Drug screen negative except for marijuana. Serum alcohol 25. Viral screen negative. He initially is was being admitted to the intensive care unit. He is seen today in consultation in the emergency department. He is currently sitting up in a chair. Awake and alert in no acute distress. He is having some episodes of nausea and vomiting. Having some diaphoretic episodes. Vital signs have remained stable. Has some chest wall pain from CPR. He is maintaining O2 saturations in the 90s on room air. He has normal saline at 130 ML's per hour. He was initiated on vancomycin and cefepime. Heparin for DVT prophylaxis. Review of Systems REVIEW OF SYSTEMS: CONSTITUTIONAL: Denies any recent significant weight loss or weight gain. EYES: Denies change in vision. EARS, NOSE, MOUTH, THROAT: Denies headaches, denies sore throat. CARDIOVASCULAR: Positive for syncopal episode. RESPIRATORY: Denies shortness of breath, cough, congestion or hemoptysis. GASTROINTESTINAL: Positive for nausea, vomiting. GENITOURINARY: Denies hematuria, denies infections. MUSKULOSKELETAL: Denies pain, denies swelling. INTEGUMENTARY: Denies rash, denies eczema. NEUROLOGICAL: Denies recent memory loss, no recent seizure activity. PSYCHIATRIC: Denies anxiety, denies depression. HEMATOLOGIC/LYMPHATIC: Denies anemia, denies enlarged lymph nodes. Past Medical History Past Medical History: No Reported History Past Surgical History: No Surgical Hx Reported Past Psychological History: No Psychological Hx Reported Past Alcohol Use History: Occasional Past Drug Use History: Marijuana Medications and Allergies Allergies Allergy/AdvReac Type Severity Reaction Status Date / Time shellfish derived [Shellfish] Allergy Anaphylaxis Verified 04/11/23 12:08 Physical Exam Vitals: Vital Signs Temp Pulse Resp BP Pulse Ox 04/11/23 10:17 75 20 155/89 97 04/11/23 09:11 97.7 F 81 18 163/77 95 04/11/23 07:55 85 20 155/94 94 L 04/11/23 06:00 82 18 115/57 93 L 04/11/23 05:00 85 18 144/83 94 L 04/11/23 04:00 77 18 136/85 93 L 04/11/23 03:00 84 18 143/85 93 L 04/11/23 02:00 86 18 144/86 93 L 04/11/23 01:12 90 18 161/87 93 L 04/10/23 23:12 92 18 133/82 93 L 04/10/23 22:12 89 18 136/78 93 L 04/10/23 21:12 90 18 127/81 93 L 04/10/23 21:06 97.6 F 85 18 150/82 Intake and Output 04/10/23 04/11/23 04/11/23 22:59 06:59 14:59 Other: Weight 88.451 kg GENERAL EXAM: Alert, pleasant 67-year-old male, on room air, fairly comfortable in no apparent distress. HEAD: Normocephalic. Lacerations to lip and bridge of the nose. EYES: Normal reaction of pupils, equal size. NOSE: Clear with pink turbinates. THROAT: No erythema or exudates. NECK: No masses, no JVD. CHEST: No chest wall deformity. LUNGS: Equal air entry with no crackles, wheeze, rhonchi or dullness. CVS: S1 and S2 normal with no audible murmur, regular rhythm. ABDOMEN: No hepatosplenomegaly, normal bowel sounds, no guarding or rigidity. SPINE: No scoliosis or deformity SKIN: No rashes CENTRAL NERVOUS SYSTEM: No focal deficits, tone is normal in all 4 extremities. EXTREMITIES: There is no peripheral edema. No clubbing, no cyanosis. Peripheral pulses are intact. Results - Laboratory Findings CBC and BMP: 04/10/23 21:29 04/10/23 21:29 PT/INR, D-dimer PT 10.3 sec (10.0-12.5) 04/10/23 21: INR 0.9 (<1.2) 04/10/23 21:29 Abnormal lab findings: Abnormal Labs 04/10/23 04/10/23 04/10/23 21:29 21:29 21:29 WBC 24.4 H Neutrophils # 21.0 H Carbon Dioxide 18 L Creatinine 1.27 H Glucose 175 H POC Glucose (mg/dL) Plasma Lactic Acid Alvaro 3.8 H* AST 86 H ALT 110 H C-Reactive Protein Ur Specific [place] Urine Protein U Marijuana (THC) Screen 04/10/23 04/11/23 04/11/23 23:18 09:06 10:37 WBC Neutrophils # Carbon Dioxide Creatinine Glucose POC Glucose (mg/dL) 129 H Plasma Lactic Acid Alvaro AST ALT C-Reactive Protein 3.3 H Ur Specific [place] >1.050 H Urine Protein Trace H U Marijuana (THC) Screen Detected H - Diagnostic Findings Chest x-ray: image reviewed CT scan - chest: image reviewed Assessment and Plan Assessment: Syncope of unclear etiology possible vasovagal as the patient was having issues with nausea. 2 minutes of CPR was performed on the patient Trauma to face secondary to fall from syncope. Workup revealed no fractures Possible early right lower lobe pneumonia, possible aspiration Leukocytosis secondary to above Mild acute renal failure Urine drug screen positive for marijuana History of hypertension Plan: The patient was seen and evaluated CAT scans and x-rays, labs and medications reviewed Stable and on room air No need for ICU admission Admit to the selective care unit Continue antibiotics for now Check a pro-calcitonin Continue cardiac workup We will continue to follow and make further recommendations based on his clinical status I have personally seen and examined the patient, performed the documentation and the assessment and plan as written. Number of minutes spent on the visit: 20.
--- NOTE | 2023-04-11 14:10 | P.CNNES ---
History of Present Illness Consult date: 04/11/23 Requesting physician: Buck Osei Reason for Consult: Rule out seizure History of Present Illness: Patient is a 67-year-old right-handed male with history of hypertension, otherwise healthy was brought to the hospital by ambulance yesterday at 9:05 PM for syncopal spell versus seizure. According to patient and his 's report, he was playing cards and suddenly he did not feel well, and felt as if he was overheated. He got up to go outside to get fresh air, but he did not make it and he passed out on the way, fell and hit his head on the table producing a cut on his lip and the cheek. His friends noticed that he was not breathing, and they started CPR and performed it for about a minute when he came to. Post ictally, he was agitated, started to push people, punch people and was "out of it". He didn't lose control of urine, but did not bit his tongue. There was no convulsive activity noted by his . His post ictal state lasted for about 20-30 minutes. Patient was brought to the hospital by ambulance. Patient states that on the time of feeling overheated, he woke up in the ambulance. Since then he remembers everything on words. No previous history of seizures. Patient does not drink alcohol, although he had just had one drink, and was not done with it before he passed out as above. EMS flow sheet not available in the chart. Vital signs on arrival blood pressure 150/82, pulse 85 temperature 97.6. Blood test shows to be requested 24.4, hemoglobin 17.0, platelets 236. PT/PTT normal. Electrolytes are normal, BUN 19, creatinine 1.27. Lactate 3.8. AST 86, ALT 110. Ammonia is 10. UA negative urine drug screen positive for marijuana. Blood alcohol level mildly elevated 25. Influenza, RSV and coronal virus PCR negative. EKG shows sinus rhythm. Chest x-ray revealed patchy left basilar opacity favors atelectasis. Facial CT, and brain CT and cervical spine revealed no acute fracture or dislocation evident in the cervical spine. No acute intracranial hemorrhage or midline shift seen. No acute displaced fracture of the facial bones. I personally reviewed CT head and agree with the findings. No acute process. Visualized paranasal sinuses are clear. Thoracic aorta CT showed no acute post menopausal finding in particular. No acute osseous fracture, abnormal fluid collection or evidence of solid organ injury in the thorax abdomen or pelvis. Patient is a nonsmoker. No family history of epilepsy. He does not drink heavily, only socially. Denies any drug use. Review of Systems Constitutional: Denies chills, Denies fever Eyes: denies blurred vision, denies diplopia, denies pain Ears: bilateral: decreased hearing, tinnitus Ears, nose, mouth and throat: Denies headache, Denies sore throat Cardiovascular: Denies chest pain, Denies shortness of breath Respiratory: Denies cough, Denies excessive sputum Gastrointestinal: Reports vomiting (Once thhis am), Denies abdominal pain, Denies diarrhea, Denies nausea Genitourinary: Denies dysuria, Denies nocturia Musculoskeletal: Denies low back pain, Denies neck pain Integumentary: Denies pruritus, Denies rash Neurological: Reports as per HPI Psychiatric: Denies anxiety, Denies depression Endocrine: Denies fatigue, Denies weight change Hematologic/Lymphatic: Denies easy bleeding, Denies easy bruising Past Medical History Past Medical History: No Reported History Past Surgical History: No Surgical Hx Reported Past Psychological History: No Psychological Hx Reported Past Alcohol Use History: Occasional Past Drug Use History: Marijuana Medications and Allergies Home Medications Medication Instructions Recorded Confirmed Type Losartan [Cozaar] 50 mg PO DAILY 04/11/23 04/11/23 History Quietum Tinnitus Supplement 1 cap PO DAILY 04/11/23 04/11/23 History Tinnitus 911 Supplement 1 cap PO DAILY 04/11/23 04/11/23 History amLODIPine [Norvasc] 10 mg PO DAILY 04/11/23 04/11/23 History Allergies Allergy/AdvReac Type Severity Reaction Status Date / Time shellfish derived [Shellfish] Allergy Anaphylaxis Verified 04/11/23 12:08 Physical Examination - Vital Signs Vital Signs: Vital Signs Temp Pulse Resp BP Pulse Ox 04/11/23 10:17 75 20 155/89 97 04/11/23 09:11 97.7 F 81 18 163/77 95 04/11/23 07:55 85 20 155/94 94 L 04/11/23 06:00 82 18 115/57 93 L 04/11/23 05:00 85 18 144/83 94 L 04/11/23 04:00 77 18 136/85 93 L 04/11/23 03:00 84 18 143/85 93 L 04/11/23 02:00 86 18 144/86 93 L 04/11/23 01:12 90 18 161/87 93 L 04/10/23 23:12 92 18 133/82 93 L 04/10/23 22:12 89 18 136/78 93 L 04/10/23 21:12 90 18 127/81 93 L 04/10/23 21:06 97.6 F 85 18 150/82 Intake and Output 04/10/23 04/11/23 04/11/23 22:59 06:59 14:59 Other: Weight 88.451 kg Patient is an elderly male, in no acute distress. Patient is alert awake oriented to time place and person. He knows it is March and the year is 2023 and that is in [facility] in [place]. Speech and language functions are normal. Patient can name and repeat very well. No aphasia or dysarthria. Attention, concentration and fund of knowledge is adequate. On cranial nerve examination, pupils are equal, round and reacting to light, visual peres are full on confrontation, with no neglect on double simultaneous stimulation. Extraocular muscles are intact with no nystagmus. Face is symmetric, tongue protrudes to the midline. Palatal elevation and sensation normal, hearing and shoulder shrug normal, facial sensation normal. On muscle strength testing, there is no pronator drift and the strength is normal in arms and legs distally and proximally. Deep tendon reflexes are symmetric 1+ and plantars are withdrawal bilaterally. Sensory to touch is equal with no neglect on double simultaneous stimulation. Cerebellar function showed no ataxia for [id number] testing. No dysdiadochokinesia. No ataxia for [id number] testing on either side. Tone and bulk of muscles normal. Gait deferred.. On general examination, there is no carotid bruit or murmur, S1-S2 audible. Chest is clear on consultation. Abdomen is soft nontender. No organomegaly, bowel sounds present. Peripheral pulses are present. No peripheral edema. There is no evidence of tongue bite abbi. He does have a cut over his right side of the lower lip from the fall. Results - Laboratory Findings CBC and BMP: 04/10/23 21:29 04/10/23 21:29 Abnormal Lab Findings: Abnormal Labs 04/10/23 04/10/2304/10/24 21:29 21:29 21:29 WBC 24.4 H Neutrophils # 21.0 H Carbon Dioxide 18 L Creatinine 1.27 H Glucose 175 H POC Glucose (mg/dL) Plasma Lactic Acid Alvaro 3.8 H* AST 86 H ALT 110 H Ur Specific [place] Urine Protein U Marijuana (THC) Screen 04/10/23 04/11/23 23:18 09:06 WBC Neutrophils # Carbon Dioxide Creatinine Glucose POC Glucose (mg/dL) 129 H Plasma Lactic Acid Alvaro AST ALT Ur Specific [place] >1.050 H Urine Protein Trace H U Marijuana (THC) Screen Detected H Assessment and Plan Assessment: * New onset syncope with possible ? Cardiac arrest, requiring CPR for 1 minute. Rule out vasovagal syncope versus seizure versus cardiac arrhythmia. Patient did not have any convulsive activity, although he did lose control of urine and had a prolonged postictal state of about 20-30 minutes, during which time he was agitated, aggressive, suggestive of possible seizure. * Hypertension * Marijuana use * Denies alcoholism, although blood alcohol level was 25. Plan: * Patient will undergo MRI of the brain with and without contrast to rule out any secondary causes of seizures * EEG evaluate for epileptiform activity. * Hold off on antiepileptic medication at this time, pending above test results. * Telemetry monitoring rule out arrhythmia. * Cardiology consultation rule out arrhythmia/cardiac arrest. * Patient was informed of [place] state law of no driving for 6 months, climbing ladders, operating dangerous machinery or unsupervised swimming. * Neurology will follow. * Thank you for the consult.
--- NOTE | 2023-04-11 15:12 | P.CRDCN ---
History of Present Illness Consult date: 04/11/23 Chief complaint: Syncopal episode History of present illness: The patient is a 67-year-old gentleman with a past medical history significant for hypertension was brought to the emergency department with syncope. The patient was in his usual state of health until earlier today when he was at [employer] with his family eating pizza. He stopped because he felt nauseated. He walked outside. Subsequently he felt dizzy and lightheaded and subsequently he lost his consciousness for few minutes. The patient was unresponsive for about a few minutes. There was a concern about cardiac arrest and CPR was initiated by a bystander for about 2 minutes. When EMS arrived the patient was alert and oriented and was stable. He was brought to the emergency department for further evaluation. He underwent further investigation including an EKG marshal wing sinus mechanism with left anterior fascicular block and chest x-ray showed no acute abnormalities and also he underwent serial cardiac enzymes came in to be unremarkable and chest x-ray came in to be unremarkable and also computed tomography scan of the brain came in to be unremarkable. The patient was seen by the neurology service. He did not have any episodes of syncope before and this is a first-time. No cardiovascular history besides hypertension. No coronary artery disease or congestive heart failure or cardiac arrhythmia. No symptoms of chest pain or chest discomfort or any shortness of breath or any feeling of heart racing or fluttering. Definitely he developed injury in the face because of the syncope. The examination is remarkable for stable vital signs beside mildly elevated blood pressure. The cardiovascular examination remarkable for regular rhythm with a soft systolic murmur at the right and left upper sternal border and clear breathing sounds bilaterally and no carotid bruit and no lower extremity edema Assessment Syncopal episode Hypertension Injury related to the syncope. Plan Monitor the heart rhythm and rule out any cardiac arrhythmia If no arrhythmia was detected he might benefit from further monitoring including an event monitor and possibly loop recorder Obtain an echocardiogram was Doppler Obtain orthostatic blood pressure check The episode could be also related to vasovagal Follow-up with the neurology input Follow-up with the patient Past Medical History Past Medical History: No Reported History Past Surgical History: No Surgical Hx Reported Past Psychological History: No Psychological Hx Reported Past Alcohol Use History: Occasional Past Drug Use History: Marijuana Medications and Allergies Home Medications Medication Instructions Recorded Confirmed Type Losartan [Cozaar] 50 mg PO DAILY 04/11/23 04/11/23 History Quietum Tinnitus Supplement 1 cap PO DAILY 04/11/23 04/11/23 History Tinnitus 911 Supplement 1 cap PO DAILY 04/11/23 04/11/23 History amLODIPine [Norvasc] 10 mg PO DAILY 04/11/23 04/11/23 History Allergies Allergy/AdvReac Type Severity Reaction Status Date / Time shellfish derived [Shellfish] Allergy Anaphylaxis Verified 04/11/23 12:08 Physical Exam Vitals: Vital Signs Temp Pulse Resp BP Pulse Ox 04/11/23 13:00 83 18 156/88 92 L 04/11/23 12:04 87 18 156/88 93 L 04/11/23 10:17 75 20 155/89 97 04/11/23 09:11 97.7 F 81 18 163/77 95 04/11/23 07:55 85 20 155/94 94 L 04/11/23 06:00 82 18 115/57 93 L 04/11/23 05:00 85 18 144/83 94 L 04/11/23 04:00 77 18 136/85 93 L 04/11/23 03:00 84 18 143/85 93 L 04/11/23 02:00 86 18 144/86 93 L 04/11/23 01:12 90 18 161/87 93 L 04/10/23 23:12 92 18 133/82 93 L 04/10/23 22:12 89 18 136/78 93 L 04/10/23 21:12 90 18 127/81 93 L 04/10/23 21:06 97.6 F 85 18 150/82 Results 04/10/23 21:29 04/10/23 21:29 Cardiac Enzymes 04/10/23 04/10/23 04/11/23 Range/Units 21:29 21:29 04:13 AST 86 H (17-59) U/L Troponin I <0.012 0.016 (0.000-0.034) ng/mL 04/11/23 Range/Units 05:54 AST (17-59) U/L Troponin I 0.016 (0.000-0.034) ng/mL Coagulation 04/10/23 Range/Units 21:29 PT 10.3 (10.0-12.5) sec APTT 22.1 (22.0-30.0) sec CBC 04/10/23 Range/Units 21:29 WBC 24.4 H (3.8-10.6) k/uL RBC 5.11 (4.30-5.90) m/uL Hgb 17.0 (13.0-17.5) gm/dL Hct 49.9 (39.0-53.0) % Plt Count 236 (150-450) k/uL Comprehensive Metabolic Panel 04/10/23 Range/Units 21:29 Sodium 141 (137-145) mmol/L Potassium 3.6 (3.5-5.1) mmol/L Chloride 107 (98-107) mmol/L Carbon Dioxide 18 L (22-30) mmol/L BUN 19 (9-20) mg/dL Creatinine 1.27 H (0.66-1.25) mg/dL Glucose 175 H (74-99) mg/dL Calcium 9.0 (8.4-10.2) mg/dL AST 86 H (17-59) U/L ALT 110 H (4-49) U/L Alkaline Phosphatase 84 (38-126) U/L Total Protein 7.1 (6.3-8.2) g/dL Albumin 4.5 (3.5-5.0) g/dL Current Medications Generic Name Dose Route Start Last Admin Trade Name Freq PRN Reason Stop Dose Admin Famotidine 20 mg 04/11/23 09:00 04/11/23 09:08 Famotidine 20 Mg/2 Ml Vial IV 20 mg Q12HR AKI Administration Heparin Sodium (Porcine) 5,000 unit 04/11/23 08:00 04/11/23 08:00 Heparin Sodium,Porcine 5,000 Unit/Ml 1 Ml Vial SQ 5,000 unit Q8HR AKI Administration Cefepime HCl 2 gm/ Sodium 100 mls @ 25 mls/hr 04/11/23 08:00 04/11/23 08:01 Chloride IVPB 25 mls/hr Q8H AKI Administration Protocol Vancomycin HCl 1,500 mg/ 500 mls @ 167 mls/hr 04/11/23 19:00 Sodium Chloride IVPB Q16H AKI Sodium Chloride 1,000 mls @ 75 mls/hr 04/11/23 09:00 04/11/23 09:09 Saline 0.9% IV 75 mls/hr .[id number] AKI Administration Naloxone HCl 0.2 mg 04/11/23 00:20 Naloxone 0.4 Mg/Ml 1 Ml Vial IV Q2M PRN Opioid Reversal Ondansetron HCl 4 mg 04/11/23 09:03 04/11/23 09:08 Ondansetron 4 Mg/2 Ml Vial IVP 4 mg Q6HR PRN Administration Nausea And Vomiting 04/10/23 21:29 04/10/23 21:29
[2023-04-11] MEDS ORDERED: VANCOMYCIN 1,500 MG in SODIUM CHLORIDE 0.9% 500 ML 500 ML IVPB SCH (19:00)
[2023-04-11] MEDS: VANCOMYCIN 1,500 MG in SODIUM CHLORIDE 0.9% 500 ML 500 ML IVPB SCH (21:59)
[2023-04-12 09:34] LABS: Basophils % (A) 0 %; Eosinophils % (A) 0 %; HCT 49.8 % (39.0-53.0); HGB 16.4 gm/dL (13.0-17.5); Lymphocytes # (A) 1.2 k/uL (1.0-4.8); Lymphocytes % (A) 7 %; MCH 32.2 pg (25.0-35.0); MCHC 32.9 g/dL (31.0-37.0); MCV 98.1 fL (80.0-100.0); Mean Platelet Volume 10.9; Monocytes % (A) 6 %; Neutrophils # (A) 15.1 k/uL (1.3-7.7); Neutrophils % (A) 87 %; Platelet Count 191 k/uL (150-450); RBC 5.07 m/uL (4.30-5.90); RDW 12.4 % (11.5-15.5); WBC 17.4 k/uL (3.8-10.6)
--- NOTE | 2023-04-12 11:11 | P.PN ---
Subjective Progress Note Date: 04/12/23 This is a 67-year-old male patient with a known history of hypertension and occasional alcohol use, marijuana use. Last evening the patient had been at a [employer] tournament when he started not feeling well. He stood up to go to the restroom however he passed out and hit his face on the ground. Bystanders were concerned that he was not breathing and pulseless and began CPR for approximately 2 minutes. When EMS arrived the patient was awake, alert and combative. His stated he did utilize marijuana that day which is not unusual in that he did have a drink but this happen before he finished one complete drink. His x-ray revealed a patchy left basilar opacity versus atelectasis. Computed tomography scan of the face and head revealed no acute fracture or dislocation in the cervical spine. No acute intracranial hemorrhage or midline shift. No acute displaced facial bone fractures. He does have a lip and nasal lacerations. T scan of the chest revealed no evidence of aneurysm no acute osseous fractures. No evidence of solid organ injury. Pelvis x-ray was unremarkable. EKG revealed sinus rhythm with no significant ST or T wave abnormalities. White count 24.4. Hemoglobin 17.0. INR 0.9. Sodium 141. Potassium 3.6. Bicarb 18. BUN 19. Creatinine 1.27. Glucose 175. AST 86. ALT 110. Troponins negative. C-reactive protein 3.3. Urinalysis clean. Drug screen negative except for marijuana. Serum alcohol 25. Viral screen negative. He initially is was being admitted to the intensive care unit. He is seen today in consultation in the emergency department. He is currently sitting up in a chair. Awake and alert in no acute distress. He is having some episodes of nausea and vomiting. Having some diaphoretic episodes. Vital signs have remained stable. Has some chest wall pain from CPR. He is maintaining O2 saturations in the 90s on room air. He has normal saline at 130 ML's per hour. He was initiated on vancomycin and cefepime. Heparin for DVT prophylaxis. On 04/12/2023, the patient is awake and alert and communicating. He is on room air oxygen. His is at the bedside. He is alert and oriented and is moving all 4 extremities. Denies having any chest pain. Events that occurred yesterday were noted. Troponins were negative. The patient was given an echocardiogram and the results are still pending for now. Meanwhile, he was covered with a combination of cefepime and vancomycin. This is empiric antibiotic coverage. Obviously, neuro and cardiac workup will be done. Is not clear to me whether this was a neurologically cardiac events. MRI of the brain was also ordered. Fortunately, the patient has no neurological deficits. He is hemodynamically stable. His pro calcitonin level is at 0.99 and his chest x-ray showing some limited atelectatic change in the left lung base. His EKG showing sinus rhythm with a left anterior fascicular block and moderate voltage criteria for LVH. Objective - Vital Signs Vital signs: Vital Signs Temp 98.1 F 04/12/23 08:45 Pulse 76 04/12/23 08:45 Resp 17 04/12/23 08:45 BP 167/83 04/12/23 08:45 Pulse Ox 94 L 04/12/23 08:45 FiO2 Intake & Output 04/11/23 04/12/23 04/12/23 18:59 06:59 18:59 Intake Total 0 180 Output Total 1250 Balance -1250 180 Weight 88.451 kg Intake: Oral 0 180 Output: Urine 1250 Other: Voiding Method Urinal Toilet Urinal # Voids 3 - Exam GENERAL EXAM: Alert, pleasant 67-year-old male, on room air, fairly comfortable in no apparent distress. Patient has a skin cut over his right face and right lip. HEAD: Normocephalic. Lacerations to lip and bridge of the nose. EYES: Normal reaction of pupils, equal size. NOSE: Clear with pink turbinates. THROAT: No erythema or exudates. NECK: No masses, no JVD. CHEST: No chest wall deformity. LUNGS: Equal air entry with no crackles, wheeze, rhonchi or dullness. CVS: S1 and S2 normal with no audible murmur, regular rhythm. ABDOMEN: No hepatosplenomegaly, normal bowel sounds, no guarding or rigidity. SPINE: No scoliosis or deformity SKIN: No rashes CENTRAL NERVOUS SYSTEM: No focal deficits, tone is normal in all 4 extremities. EXTREMITIES: There is no peripheral edema. No clubbing, no cyanosis. Peripheral pulses are intact. - Labs CBC & Chem 7: 04/12/23 08:12 04/10/23 21:29 Labs: Abnormal Lab Results - Last 24 Hours (Table) 04/11/23 04/11/23 04/12/23 Range/Units 10:37 10:37 08:12 WBC 17.4 H (3.8-10.6) k/uL Neutrophils # 15.1 H (1.3-7.7) k/uL C-Reactive Protein 3.3 H (<1.0) mg/dL Procalcitonin 0.99 H (0.02-0.09) ng/mL Assessment and Plan Plan: Syncope of unclear etiology possible vasovagal as the patient was having issues with nausea. 2 minutes of CPR was performed on the patient. Is not clear to me whether this was a cardiac or neurologic event. Echocardiogram was done. Enzymes are negative. Cardiac rhythm is sinus. History of any chest pain. The patient also had an EEG. MRI of the brain is to follow. Trauma to face secondary to fall from syncope. Workup revealed no fractures Possible early right lower lobe pneumonia, possible aspiration Leukocytosis secondary to above Mild acute renal failure Urine drug screen positive for marijuana History of hypertension Plan: patient is going to complete the neuro and cardiac workup Echocardiogram is completed is also still pending EEG Neurology consultation Cardiology consultation Repeat chest x-ray within next 24 hours Pro calcitonin is nonelevated Chest x-ray findings are likely atelectatic in nature and the patient may come off the antibiotics based on the results of the chest x-ray tomorrow We'll continue to follow Stable and on room air
[2023-04-12 11:22] LABS: African American GFR (CKD) >90 (>60 ml/min/1.73 sqM); Anion Gap 12 mmol/L; Blood Urea Nitrogen 13 mg/dL (9-20); Carbon Dioxide 20 mmol/L (22-30); Chloride 110 mmol/L (98-107); Glucose 161 mg/dL (74-99); Magnesium 2.1 mg/dL (1.6-2.3); Non-African American GFR(CKD) 84 (>60 ml/min/1.73 sqM); Potassium 3.7 mmol/L (3.5-5.1); Sodium 142 mmol/L (137-145)
--- NOTE | 2023-04-12 12:40 | EEG ---
ELECTROENCEPHALOGRAM REPORT PREAMBLE: This is a 67-year-old male with syncope versus seizure. CURRENT MEDICATIONS: 1. Cefepime. 2. Pepcid. 3. Vancomycin. 4. Zofran. EEG FINDINGS: This is a 21-channel digital EEG recorded with video component, utilizing 10/20 international system with referential and bipolar montages. Background consists of well developed, well regulated moderate voltage activity in 8-9 hertz alpha. Background is posterior dominant and seems to be reactive to eye opening and closing. Photic driving response was not seen. There is frequent, intermittent focal dysrhythmic slowing in bilateral temporal region, left slightly more than right. No definitive focal or generalized epileptiform activity was seen. Different stages of sleep were not seen. IMPRESSION: This is an abnormal EEG due to intermittent focal slowing in bitemporal region, left more than right, suggestive of focal cortical neuronal dysfunction. No definitive epileptiform activity was seen. If your suspicion for seizures is high, suggest prolonged, sleep-deprived EEG. MMODL / IJN: [id number] /
[2023-04-12] MEDS: LORazepam 1 MG TAB PO PRN (12:58)
[2023-04-12] MEDS: LOSARTAN 50 MG TAB PO SCH (12:59)
[2023-04-12] MEDS: VANCOMYCIN 1,500 MG in SODIUM CHLORIDE 0.9% 500 ML 500 ML IVPB SCH (14:03)
--- NOTE | 2023-04-12 14:10 | MR ---
EXAMINATION TYPE: MR brain wo/w con DATE OF EXAM: 04/12/2023 1:41 PM CLINICAL INDICATION:Male, 67 years old with history of seizure vs syncope; PHH, Seizure vs syncope. COMPARISON: 04/10/2023. TECHNIQUE: Multi planar, multi sequence imaging was performed through the brain including: T1, T2, In version recovery, susceptibility weighted imaging and gradient echo imaging and Diffusion weighted im aging. The patient was then given intravenous contrast and multi planar, T1 fat-saturation images wer e obtained. IV Contrast: 9 cc Gadavist FINDINGS: Scattered foci of blooming artifact throughout the brain. Mild cerebral atrophy with proportional dilation of ventricular system. Diffusion-weighted imaging s hows no evidence of restricted diffusion to suggest acute/subacute infarct. There are some T2 shine t hrough in the right frontal lobe series 303 image 176. Intracranial arterial flow voids are maintaine d. Midline structures show no abnormality. Scattered foci of high T2 signal intensity are seen within the periventricular white matter. The susceptibility weighted images do not reveal any evidence for micro-hemorrhage. After administration of gadolinium, no abnormal enhancement is seen. 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 The bone marrow signal is within normal limits. Paranasal sinuses and mastoid air cells: No significant paranasal sinus disease. Visualized orbits: Orbital contents are intact. IMPRESSION: 1. No evidence of intracranial mass, acute/subacute infarct, or abnormal enhancement. 2. Scattered blooming artifact foci throughout the brain tristan-white junction. Suggestive of microhem orrhage. 3. Minimal scattered white matter change.
--- NOTE | 2023-04-12 14:32 | P.PN ---
Subjective Progress Note Date: 04/12/23 Chief complaint: Syncopal episode History of present illness: The patient is a 67-year-old gentleman with a past medical history significant for hypertension was brought to the emergency department with syncope. The patient was in his usual state of health until earlier today when he was at [employer] with his family eating pizza. He stopped because he felt nauseated. He walked outside. Subsequently he felt dizzy and lightheaded and subsequently he lost his consciousness for few minutes. The patient was unresponsive for about a few minutes. There was a concern about cardiac arrest and CPR was initiated by a bystander for about 2 minutes. When EMS arrived the patient was alert and oriented and was stable. He was brought to the emergency department for further evaluation. He underwent further investigation including an EKG showing sinus mechanism with left anterior fascicular block and chest x-ray showed no acute abnormalities and also he underwent serial cardiac enzymes came in to be unremarkable and chest x-ray came in to be unremarkable and also computed tomography scan of the brain came in to be unremarkable. The patient was seen by the neurology service. He did not have any episodes of syncope before and this is a first-time. No cardiovascular history besides hypertension. No coronary artery disease or congestive heart failure or cardiac arrhythmia. No symptoms of chest pain or chest discomfort or any shortness of breath or any feeling of heart racing or fluttering. Definitely he developed injury in the face because of the syncope. The examination is remarkable for stable vital signs beside mildly elevated blood pressure. 04/12 Patient is seen today in follow-up. Echocardiogram remains pending. Pressure 77/83, heart rate in the 70s. Patient was started on losartan. The cardiovascular examination remarkable for regular rhythm with a soft systolic murmur at the right and left upper sternal border and clear breathing sounds bilaterally and no carotid bruit and no lower extremity edema Assessment Syncopal episode Hypertension Injury related to the syncope. Plan Monitor the heart rhythm and rule out any cardiac arrhythmia If no arrhythmia was detected he might benefit from further monitoring including an event monitor and possibly loop recorder Obtain an echocardiogram was Doppler report Add losartan 50 mg daily Follow-up with the neurology input Follow-up with the patient Nurse practitioner note has been reviewed, I agree with the documented findings and plan of care. Patient was seen and examined. Objective - Vital Signs Vital signs: Vital Signs Temp 98.1 F 04/12/23 08:45 Pulse 71 04/12/23 11:18 Resp 16 04/12/23 11:18 BP 145/76 04/12/23 11:18 Pulse Ox 93 L 04/12/23 11:18 FiO2 Intake & Output 04/11/23 04/12/23 04/12/23 18:59 06:59 18:59 Intake Total 0 180 Output Total 1250 Balance -1250 180 Weight 88.451 kg Intake: Oral 0 180 Output: Urine 1250 Other: Voiding Method Urinal Toilet Urinal # Voids 3 - Labs CBC & Chem 7: 04/12/23 08:12 04/12/23 08:12 Labs: Abnormal Lab Results - Last 24 Hours (Table) 04/11/23 04/12/23 04/12/23 Range/Units 10:37 08:12 08:12 WBC 17.4 H (3.8-10.6) k/uL Neutrophils # 15.1 H (1.3-7.7) k/uL Chloride 110 H (98-107) mmol/L Carbon Dioxide 20 L (22-30) mmol/L Glucose 161 H (74-99) mg/dL Procalcitonin 0.99 H (0.02-0.09) ng/mL
--- NOTE | 2023-04-12 14:42 | P.PN ---
Subjective This is a pleasant 67 years old male with no significant past medical history who found unresponsive at home and underwent CPR for 2 minutes became combative and then he came to the emergency breathing on his own. Patient is lying in bed comfortable, fully awake and oriented currently calm. Information were obtained from the patient and at bedside Patient was not feeling well yesterday and he had some nausea and little vomiting, he went get up and wanted to go outside he felt lightheadedness and then he collapsed on the floor and stop breathing as per her friend who was with him at the beginning so CPR was started and EMS were called, and then within a few minutes patient came back and he was combative, he P Yi himself however he was still confused and he woke up in the ambulance Patient himself cannot recall what happened. However he still feeling some nausea and vomited little bit this morning but he denies chest pain dyspnea coughing. No headache dizziness weakness numbness. No urinary complaints. No abdominal pain or diarrhea. He denies smoking alcohol and he smokes marijuana at times. Vitals currently looks stable and he is saturating 93% on room air, labs were unremarkable including urine analysis, INR, His white cell count is elevated 24,000, as per at bedside his WBC always been elevated Creatinine is slightly up at 1.27, liver enzymes slightly elevated but bilirubin is within the reference range Troponins 2 are negative at 0.016. Influenza A and type B, RSV, SARS (coronavirus) are and detected ProBNP 29 EKG showing normal sinus rhythm at [address]-T changes and QTC 413 Pelvic x-ray: No acute fracture CT of the head and neck is negative for acute process fracture, CT of the face: No acute fracture or dislocation, no displaced facial bone fracture. Chest x-rays showing patchy left basilar opacity mostly atelectasis Patient is started on cefepime and IV vancomycin and admitted to the ICU with cardiology, pulmonary/critical care. 04/12/2023 Patient is awake alert today, no nausea vomiting No dizziness headache or neurological complaints. He is hemodynamically stable and afebrile Leukocytosis is improving down to 17,000, Creatinine improved back to 0.9 and prior to his normal saline done to 50 mL/h He remains on cefepime and IV vancomycin for possible infection, aspiration pneumonia on the right side versus atelectasis is suspected. Patient also had a neurological workup as below MRI of the brain: 1. No evidence of intracranial mass, acute/subacute infarct, or abnormal enhancement. 2. Scattered blooming artifact foci throughout the brain tristan-white junction. Suggestive of microhemorrhage. EEG of the brain showing abnormal results with intermittent focal slowing and bitemporal region, left more than right suggestive of focal cortical Sina dysfunction. No definitive epileptiform activity was seen. May suggest prolonged deep depraved EEG if seizure still suspected. We will defer further management to the neurologist Subcutaneous heparin started and emergency room was discontinued. Patient currently not on aspirin or any other blood thinner Review of systems CONSTITUTIONAL: No fever, no malaise, no fatigue. HEENT: No recent visual problems or hearing problems. Denied any sore throat. CARDIOVASCULAR: No orthopnea, PND, no palpitations, no syncope. PULMONARY: No shortness of breath, no cough, no hemoptysis. Active Medications Generic Name Dose Route Start Last Admin Trade Name Freq PRN Reason Stop Dose Admin Famotidine 20 mg 04/11/23 09:00 04/12/23 08:52 Famotidine 20 Mg/2 Ml Vial IV 20 mg Q12HR AKI Administration Cefepime HCl 2 gm/ Sodium 100 mls @ 25 mls/hr 04/11/23 08:00 04/12/23 08:50 Chloride IVPB 25 mls/hr Q8H AKI Administration Protocol Sodium Chloride 1,000 mls @ 50 mls/hr 04/11/23 09:00 04/12/23 11:22 Saline 0.9% IV 75 mls/hr .Q20H AKI Administration Vancomycin HCl 1,500 mg/ 500 mls @ 167 mls/hr 04/12/23 13:00 04/12/23 14:03 Sodium Chloride IVPB 167 mls/hr Q12H AKI Administration Lorazepam 1 mg 04/12/23 08:00 04/12/23 12:58 Lorazepam 1 Mg Tab PO 1 mg ONCE PRN Administration Anxiety Losartan Potassium 50 mg 04/12/23 13:00 04/12/23 12:59 Losartan 50 Mg Tab PO 50 mg DAILY AKI Administration Naloxone HCl 0.2 mg 04/11/23 00:20 Naloxone 0.4 Mg/Ml 1 Ml Vial IV Q2M PRN Opioid Reversal Ondansetron HCl 4 mg 04/11/23 09:03 04/11/23 09:08 Ondansetron 4 Mg/2 Ml Vial IVP 4 mg Q6HR PRN Administration Nausea And Vomiting Objective - Vital Signs Vital signs: Vital Signs Temp 98.1 F 04/12/23 08:45 Pulse 71 04/12/23 11:18 Resp 16 04/12/23 11:18 BP 145/76 04/12/23 11:18 Pulse Ox 93 L 04/12/23 11:18 FiO2 Intake & Output 04/11/23 04/12/23 04/12/23 18:59 06:59 18:59 Intake Total 0 360 Output Total 1250 Balance -1250 360 Weight 88.451 kg Intake: Oral 0 360 Output: Urine 1250 Other: Voiding Method Urinal Toilet Urinal # Voids 3 - Exam GENERAL: The patient is alert and oriented x3, not in any acute distress. Well developed, well nourished. HEENT: Pupils are round and equally reacting to light. EOMI. No scleral icterus. No conjunctival pallor. Normocephalic, atraumatic. No pharyngeal erythema. No thyromegaly. CARDIOVASCULAR: S1 and S2 present. No murmurs, rubs, or gallops. PULMONARY: Chest is clear to auscultation, no wheezing , no crackles. ABDOMEN: Soft, nontender, nondistended, normoactive bowel sounds. No palpable organomegaly. MUSCULOSKELETAL: No joint swelling or deformity. EXTREMITIES: No cyanosis, clubbing, or pedal edema. NEUROLOGICAL: Gross neurological examination did not reveal any focal deficits. SKIN: No rashes. no petechiae. - Labs CBC & Chem 7: 04/12/23 08:12 04/12/23 08:12 Labs: Abnormal Lab Results - Last 24 Hours (Table) 04/11/23 04/12/23 04/12/23 Range/Units 10:37 08:12 08:12 WBC 17.4 H (3.8-10.6) k/uL Neutrophils # 15.1 H (1.3-7.7) k/uL Chloride 110 H (98-107) mmol/L Carbon Dioxide 20 L (22-30) mmol/L Glucose 161 H (74-99) mg/dL Procalcitonin 0.99 H (0.02-0.09) ng/mL Microbiology - Last 24 Hours (Table) 04/10/23 23:30 Blood Culture - Preliminary Blood 04/10/23 23:15 Blood Culture - Preliminary Blood Assessment and Plan Assessment: periods Of unresponsiveness suspicious for cardiac arrest status post CPR, associated with combativeness confusion and urine incontinence, rule out seizure as well. MRI of the brain showing microhemorrhages Nausea and vomiting Chronic leukocytosis as per history Mild acute kidney injury Mild transaminitis Plan: Continue monitoring the select unit Continue with gentle hydration Patient was started on antibiotic in the emergency room cefepime and IV vancomycin. Follow-up blood culture. We will check for calcitonin and CRP, currently there is no strong evidence of infection and patient is been afebrile Continue with antiemetic Check echocardiogram MRI of the brain and EEG test results are noted. Neurology team service is already on the case Cardiology and pulmonary consult DVT prophylaxis: Discontinue subcutaneous Heparin for MRI of the brain showing microhemorrhages. Continue with SCD GI prophylaxis Pepcid Prognosis is guarded
--- NOTE | 2023-04-12 19:24 | P.PN ---
Subjective Progress Note Date: 04/12/23 Objective - Vital Signs Vital signs: Vital Signs Temp 98.1 F 04/12/23 08:45 Pulse 63 04/12/23 16:00 Resp 15 04/12/23 16:00 BP 165/83 04/12/23 16:00 Pulse Ox 95 04/12/23 16:00 FiO2 Intake & Output 04/12/23 04/12/23 04/13/23 06:59 18:59 06:59 Intake Total 0 470 Output Total 1250 600 Balance -1250 -130 Weight 88.451 kg Intake: Oral 0 470 Output: Urine 1250 600 Other: Voiding Method Urinal Toilet Urinal # Voids 3 2 - Labs CBC & Chem 7: 04/12/23 08:12 04/12/23 08:12 Labs: Abnormal Lab Results - Last 24 Hours (Table) 04/11/23 04/12/23 04/12/23 Range/Units 10:37 08:12 08:12 WBC 17.4 H (3.8-10.6) k/uL Neutrophils # 15.1 H (1.3-7.7) k/uL Chloride 110 H (98-107) mmol/L Carbon Dioxide 20 L (22-30) mmol/L Glucose 161 H (74-99) mg/dL Procalcitonin 0.99 H (0.02-0.09) ng/mL Microbiology - Last 24 Hours (Table) 04/10/23 23:30 Blood Culture - Preliminary Blood 04/10/23 23:15 Blood Culture - Preliminary Blood Assessment and Plan Assessment: * New onset syncope with possible ? Cardiac arrest, requiring CPR for 1 minute by family members. Rule out vasovagal syncope versus seizure versus cardiac arrhythmia. Patient did not have any convulsive activity, although he did lose control of urine and had a prolonged postictal state of about 20-30 minutes, during which time he was agitated, aggressive, suggestive of possible seizure. * Hypertension * Marijuana use * Denies alcoholism, although blood alcohol level was 25. Plan: * MRI of the brain with and without contrast revealed no evidence of intracranial mass, acute/subacute infarct or abnormal enhancement. Scattered blooming artifact foci throughout the brain tristan-white junction. Suggestive of microhemorrhage. Minimal scattered white matter change. I personally reviewed MRI, there is questionable area of abnormal DWI in the right parietal cortex. We will review with the radiologist. * EEG was abnormal due to intermittent focal slowing in bitemporal region, left more than right, suggestive of focal cortical neuronal dysfunction. No definitive epileptiform activity was seen. If your suspicion for seizures is high, suggest prolonged, sleep deprived EEG. * Hold off on antiepileptic medication at this time, as it is not very clear, if this was a seizure or a syncope pending further workup. Suggest prolonged EEG, either inpatient or outpatient. * Telemetry monitoring rule out arrhythmia. * Cardiology input appreciated. Patient to be considered for event monitor placement versus loop recorder. * 2-D echo completed, results pending. * Patient was informed of [place] state law of no driving for 6 months, climbing ladders, operating dangerous machinery or unsupervised swimming. * Dr. Kirk Thorpe Will resume neurology service in the morning.
--- NOTE | 2023-04-12 22:08 | P.CONS ---
History of Present Illness - Reason for Consult Consult date: 04/12/23 Leukocytosis and antibiotic management Requesting physician: Buck E Sheet - Chief Complaint Unresponsive at home x 1 day - History of Present Illness Patient is a 67-year-old male with no significant past medical history patient was found to be unresponsive at home and underwent CPR for 2 minutes patient became combative and that he came to the emergency room for evaluation, apparently patient has not been feeling well did before his symptoms started did have some nausea and bloating vomiting patient got up and went outside and the patient felt lightheaded and then collapsed on the floor and stop breathing as per his friend CPR was started and EMS was calling patient was recently treated on the way to the ER patient woke up however was confused on presentation to the ER the patient was afebrile and no fever has been recorded subsequently patient was not tachycardic hypotensive or hypoxic patient did have white count of 24.4, creatinine was mildly elevated lactic acid was elevated no symptoms mildly elevated CRP is 3.3 procalcitonin 0.99 urine has been negative urine drug screen was Positive for marijuana influenza RSV and COVID testing was negative, patient did have a chest x-ray patchy right basilar opacity favors atelectasis for CT no acute fracture or dislocation no acute intracranial hemorrhage no displaced facial bones fracture, patient was started on vancomycin and cefepime infectious he was consulted for further management of antibiotic therapy Review of Systems Positive point and negatives has been mentioned in the HPI, complete review of systems was performed and all other systems are negative Past Medical History Past Medical History: No Reported History History of Any Multi-Drug Resistant Organisms: None Reported Past Surgical History: No Surgical Hx Reported Past Anesthesia/Blood Transfusion Reactions: No Reported Reaction Past Psychological History: No Psychological Hx Reported Smoking Status: Unknown if ever smoked Past Alcohol Use History: Occasional Past Drug Use History: Marijuana Medications and Allergies Home Medications Medication Instructions Recorded Confirmed Type Losartan [Cozaar] 50 mg PO DAILY 04/11/23 04/11/23 History Quietum Tinnitus Supplement 1 cap PO DAILY 04/11/23 04/11/23 History Tinnitus 911 Supplement 1 cap PO DAILY 04/11/23 04/11/23 History Allergies Allergy/AdvReac Type Severity Reaction Status Date / Time shellfish derived [Shellfish] Allergy Anaphylaxis Verified 04/11/23 12:08 Physical Exam Vitals: Vital Signs Temp Pulse Pulse Resp BP BP Pulse Ox 04/12/23 08:45 98.1 F 76 17 167/83 94 L 04/12/23 03:43 98.2 F 73 16 145/78 92 L 04/12/23 02:00 69 16 04/11/23 23:45 98.3 F 69 16 150/73 93 L 04/11/23 20:55 98.7 F 72 18 152/76 94 L 04/11/23 20:00 72 18 04/11/23 17:00 73 18 155/89 92 L 04/11/23 15:00 80 17 161/87 93 L 04/11/23 13:30 83 18 150/89 94 L 04/11/23 13:00 83 18 156/88 92 L 04/11/23 12:04 87 18 156/88 93 L Intake and Output 04/11/23 04/12/23 04/12/23 22:59 06:59 14:59 Intake Total 0 180 Output Total 1250 Balance 0 -1250 180 Intake: Oral 0 180 Output: Urine 1250 Other: Voiding Method Urinal Urinal Toilet Urinal # Voids 3 Weight 88.451 kg GENERAL DESCRIPTION: Elderly male lying in bed, no distress. No tachypnea or accessory muscle of respiration use. HEENT: Shows Pallor , no scleral icterus. Oral mucous membrane is dry. No pharyngeal erythema or thrush NECK: Trachea central, no thyromegaly. LUNGS: Unlabored breathing. Decreased breath sound at the base no wheeze or crackle. HEART: S1, S2, regular rate and rhythm. No loud murmur ABDOMEN: Soft, no tenderness , guarding or rigidity, no organomegaly EXTREMITIES: No edema of feet. SKIN: No rash, no masses palpable. NEUROLOGICAL: The patient is awake, alert, oriented x3, mood and affect normal. Results CBC & Chem 7: 04/13/23 08:52 04/13/23 08:52 Labs: Abnormal Lab Results - Last 24 Hours (Table) 04/11/23 04/11/23 04/12/23 Range/Units 10:37 10:37 08:12 WBC 17.4 H (3.8-10.6) k/uL Neutrophils # 15.1 H (1.3-7.7) k/uL C-Reactive Protein 3.3 H (<1.0) mg/dL Procalcitonin 0.99 H (0.02-0.09) ng/mL Assessment and Plan (1) Aspiration pneumonitis Status: Acute Code(s): J69.0 - PNEUMONITIS DUE TO INHALATION OF FOOD AND VOMIT SNOMED Code(s): 431047534 (2) Leukocytosis Status: Acute Code(s): D72.829 - ELEVATED WHITE BLOOD CELL COUNT, UNSPECIFIED SNOMED Code(s): 415748235 Plan: 1patient was brought into the hospital after the patient did have collapse outside his house patient has been resuscitated with the CPR on presentation to the hospital patient was afebrile however did have elevated white count did have left sided infiltrate and elevated procalcitonin 0.99 concern for possible aspiration pneumonitis is currently no other obvious focus of infection UA was negative abdominal soft clinical examination and evidence of any joint swelling or cellulitis 2-we will discontinue vancomycin and cefepime 3-start the patient on Unasyn 3 g every 6 hours We will follow on clinical condition and cultures to further adjust medication if needed Thank you for this consultation we will follow the patient along with you Dictation was produced using [email or web address] dictation software. please excuse any grammatical, word or spelling errors. Time with Patient: Greater than 30
[2023-04-12] MEDS: AMPICILLIN-SULBACTAM 3 GM in SODIUM CHLORIDE 0.9% 100 ML IVPB SCH (23:32)
[2023-04-13 08:41] VITALS: PULSE 68; TEMP 98
--- NOTE | 2023-04-13 09:40 | CA ---
Transthoracic Echo Report Name: Rex Giraldo Age: 67 Gender: M : 1955 Exam Date: 04/12/2023 09:15 Exam Location: [facility] Ht (in): 71 Wt (lb): 195 Ordering Physician: Flip Muro MD Attending/Referring Phys: Salad Maker Beulah Brower RDCS Procedure CPT: Indications: possible cardiac arrest out of hospital Cardiac Hx: Technical Quality: Poor Contrast 1: Total Dose (mL): Contrast 2: Total Dose (mL): MEASUREMENTS (Male / Female) Normal Values 2D ECHO LV Diastolic Diameter PLAX 5.1 cm 4.2 - 5.9 / 3.9 - 5.3 cm LV Systolic Diameter PLAX 3.1 cm IVS Diastolic Thickness 1.4 cm 0.6 - 1.0 / 0.6 - 0.9 cm LVPW Diastolic Thickness 1.4 cm 0.6 - 1.0 / 0.6 - 0.9 cm LV Relative Wall Thickness 0.6 RV Internal Dim ED PLAX 3.6 cm LA Systolic Diameter LX 3.9 cm 3.0 - 4.0 / 2.7 - 3.8 cm LV Diastolic Volume MOD 4C 91.0 cm??? LV Systolic Volume MOD 4C 30.0 cm??? LV Ejection Fraction MOD 4C 67.0 % LV Cardiac Index MOD 4C 1984.7 cm???/min???m??? LV Diastolic Length 4C 8.9 cm LV Systolic Length 4C 7.7 cm LV Diastolic Volume MOD 2C 105.7 cm??? LV Systolic Volume MOD 2C 42.7 cm??? LV Ejection Fraction MOD 2C 59.6 % LV Cardiac Index MOD 2C 2051.6 cm???/min???m??? LV Diastolic Length 2C 8.9 cm LV Systolic Length 2C 7.9 cm M-MODE Aortic Root Diameter MM 4.1 cm AV Cusp Separation MM 2.5 cm DOPPLER AV Peak Velocity 142.2 cm/s AV Peak Gradient 8.1 mmHg MV Area PHT 2.6 cm??? Mitral E Point Velocity 58.9 cm/s Mitral A Point Velocity 61.6 cm/s Mitral E to A Ratio 1.0 MV Deceleration Time 296.7 ms MV E' Velocity 8.8 cm/s Mitral E to MV E' Ratio 6.7 TR Peak Velocity 202.6 cm/s TR Peak Gradient 16.4 mmHg Right Ventricular Systolic Press 21.4 mmHg FINDINGS Left Ventricle Left ventricular ejection fraction is estimated at 60-65%. Left ventricular cavity size normal. Mildly increased septal wall thickness. Right Ventricle Mild right ventricular dilatation. Right ventricular systolic pressure within normal limits. Right Atrium Normal right atrial size. Left Atrium Normal left atrial size. Mitral Valve Structurally normal mitral valve. No mitral stenosis, regurgitation or prolapse. Aortic Valve Trileaflet aortic valve. No aortic valve stenosis or regurgitation. Tricuspid Valve Structurally normal tricuspid valve. Trace to mild tricuspid regurgitation. Pulmonic Valve Pulmonic valve not well visualized. Pericardium No pericardial effusion. Aorta Mild aortic dilatation at the level of the sinuses of valsalva 41 mm CONCLUSIONS Enlarged RV with preserved function Normal LV size and function Previewed by: Dr. Ry Keyes MD (Electronically Signed) Final Date: 13 April 2023 09:39
[2023-04-13 09:49] LABS: Basophils # (A) 0.1 k/uL (0-0.2); Basophils % (A) 0 %; Eosinophils # (A) 0.1 k/uL (0-0.7); Eosinophils % (A) 1 %; HCT 48.7 % (39.0-53.0); HGB 16.7 gm/dL (13.0-17.5); Lymphocytes % (A) 12 %; MCH 32.6 pg (25.0-35.0); MCHC 34.4 g/dL (31.0-37.0); MCV 94.7 fL (80.0-100.0); Mean Platelet Volume 10.2; Monocytes % (A) 6 %; Neutrophils # (A) 12.9 k/uL (1.3-7.7); Neutrophils % (A) 79 %; Platelet Count 199 k/uL (150-450); RBC 5.14 m/uL (4.30-5.90); RDW 12.5 % (11.5-15.5); WBC 16.3 k/uL (3.8-10.6)
[2023-04-13 10:02] LABS: ALT 47 U/L (4-49); AST 29 U/L (17-59); African American GFR (CKD) >90 (>60 ml/min/1.73 sqM); Albumin 3.9 g/dL (3.5-5.0); Alkaline Phosphatase 83 U/L (38-126); Anion Gap 8 mmol/L; Blood Urea Nitrogen 14 mg/dL (9-20); Calcium 8.9 mg/dL (8.4-10.2); Carbon Dioxide 21 mmol/L (22-30); Chloride 111 mmol/L (98-107); Glucose 120 mg/dL (74-99); Non-African American GFR(CKD) 88 (>60 ml/min/1.73 sqM); Potassium 3.4 mmol/L (3.5-5.1); Sodium 140 mmol/L (137-145); Total Bilirubin 0.9 mg/dL (0.2-1.3); Total Protein 6.4 g/dL (6.3-8.2)
[2023-04-13 11:27] VITALS: BP 162/73; RESP 16
--- NOTE | 2023-04-13 11:30 | XR ---
EXAMINATION TYPE: XR chest 1V portable DATE OF EXAM: 04/13/2023 COMPARISON: 04/10/2023 HISTORY: Shortness of breath TECHNIQUE: Single frontal view of the chest is obtained. FINDINGS: A left lower lobe infiltrate and small effusion. Right lung clear. No overt failure. No pn eumothorax. Curvature of the spine with degenerative changes. IMPRESSION: Left lower lobe atelectasis or early infiltrate with small effusion.
--- NOTE | 2023-04-13 12:35 | P.PN ---
Subjective Progress Note Date: 04/13/23 This is a 67-year-old male patient with a known history of hypertension and occasional alcohol use, marijuana use. Last evening the patient had been at a [employer] [place] when he started not feeling well. He stood up to go to the restroom however he passed out and hit his face on the ground. Bystanders were concerned that he was not breathing and pulseless and began CPR for approximately 2 minutes. When EMS arrived the patient was awake, alert and combative. His stated he did utilize marijuana that day which is not unusual in that he did have a drink but this happen before he finished one complete drink. His x-ray revealed a patchy left basilar opacity versus atelectasis. Computed tomography scan of the face and head revealed no acute fracture or dislocation in the cervical spine. No acute intracranial hemorrhage or midline shift. No acute displaced facial bone fractures. He does have a lip and nasal lacerations. T scan of the chest revealed no evidence of aneurysm no acute osseous fractures. No evidence of solid organ injury. Pelvis x-ray was unremarkable. EKG revealed sinus rhythm with no significant ST or T wave abnormalities. White count 24.4. Hemoglobin 17.0. INR 0.9. Sodium 141. Potassium 3.6. Bicarb 18. BUN 19. Creatinine 1.27. Glucose 175. AST 86. ALT 110. Troponins negative. C-reactive protein 3.3. Urinalysis clean. Drug screen negative except for marijuana. Serum alcohol 25. Viral screen negative. He initially is was being admitted to the intensive care unit. He is seen today in consultation in the emergency department. He is currently sitting up in a chair. Awake and alert in no acute distress. He is having some episodes of nausea and vomiting. Having some diaphoretic episodes. Vital signs have remained stable. Has some chest wall pain from CPR. He is maintaining O2 saturations in the 90s on room air. He has normal saline at 130 ML's per hour. He was initiated on vancomycin and cefepime. Heparin for DVT prophylaxis. On 04/12/2023, the patient is awake and alert and communicating. He is on room air oxygen. His is at the bedside. He is alert and oriented and is moving all 4 extremities. Denies having any chest pain. Events that occurred yesterday were noted. Troponins were negative. The patient was given an echocardiogram and the results are still pending for now. Meanwhile, he was covered with a combination of cefepime and vancomycin. This is empiric antibiotic coverage. Obviously, neuro and cardiac workup will be done. Is not clear to me whether this was a neurologically cardiac events. MRI of the brain was also ordered. Fortunately, the patient has no neurological deficits. He is hemodynamically stable. His pro calcitonin level is at 0.99 and his chest x-ray showing some limited atelectatic change in the left lung base. His EKG showing sinus rhythm with a left anterior fascicular block and moderate voltage criteria for LVH. On 04/13/2023, the patient is being seen for a follow-up. The patient is doing well. No specific complaints. Note that the MRI of the brain was done as part of his cardiac pulmonary arrest and MRI of the brain showed no evidence of any intracranial mass or acute/subacute infarct. There was scattered artifact foci through the brain a white matter junction. This is a possibility of microhemorrhage. This was also reviewed by neurology and the findings were suspected to be nonspecific. EEG was also abnormal due to intermittent focal sl owing in the bitemporal region left more than right and it was suggested of cortical dysfunction. No seizure activity was noted. Meanwhile, the echocardiogram was also done and this was within normal limits. No plans for cardiac catheterization and the patient is possibly going to need a threat monitoring analyst to be done outpatient basis. He is doing well. Is on room air oxygen. A repeat chest x-ray was done that shows small left basilar atelectasis/effusion. No evidence of any consolidation or airspace disease and the patient remains on IV Unasyn. Labs from today shows a white cell count of 16, BUN is 40 with a creatinine of 0.9 and esomeprazole 40. Pro-calcitonin level is at 0.99. Objective - Vital Signs Vital signs: Vital Signs Temp 98.0 F 04/13/23 08:18 Pulse 68 04/13/23 08:18 Resp 18 04/13/23 08:18 BP 162/89 04/13/23 08:18 Pulse Ox 94 L 04/13/23 08:18 FiO2 Intake & Output 04/12/23 04/13/23 04/13/23 18:59 06:59 18:59 Intake Total 470 118 Output Total 600 1275 Balance -130 -1275 118 Intake: Oral 470 118 Output: Urine 600 1275 Other: Voiding Method Toilet Urinal Urinal Urinal # Voids 2 1 - Exam GENERAL EXAM: Alert, pleasant 67-year-old male, on room air, fairly comfortable in no apparent distress. Patient has a skin cut over his right face and right lip. HEAD: Normocephalic. Lacerations to lip and bridge of the nose. EYES: Normal reaction of pupils, equal size. NOSE: Clear with pink turbinates. THROAT: No erythema or exudates. NECK: No masses, no JVD. CHEST: No chest wall deformity. LUNGS: Equal air entry with no crackles, wheeze, rhonchi or dullness. CVS: S1 and S2 normal with no audible murmur, regular rhythm. ABDOMEN: No hepatosplenomegaly, normal bowel sounds, no guarding or rigidity. SPINE: No scoliosis or deformity SKIN: No rashes CENTRAL NERVOUS SYSTEM: No focal deficits, tone is normal in all 4 extremities. EXTREMITIES: There is no peripheral edema. No clubbing, no cyanosis. Peripheral pulses are intact. - Labs CBC & Chem 7: 04/13/23 08:52 04/13/23 08:52 Labs: Abnormal Lab Results - Last 24 Hours (Table) 04/12/23 04/13/23 04/13/23 Range/Units 08:12 08:52 08:52 WBC 16.3 H (3.8-10.6) k/uL Neutrophils # 12.9 H (1.3-7.7) k/uL Potassium 3.4 L (3.5-5.1) mmol/L Chloride 110 H 111 H (98-107) mmol/L Carbon Dioxide 20 L 21 L (22-30) mmol/L Glucose 161 H 120 H (74-99) mg/dL Microbiology - Last 24 Hours (Table) 04/10/23 23:30 Blood Culture - Preliminary Blood 04/10/23 23:15 Blood Culture - Preliminary Blood Assessment and Plan Plan: Syncope of unclear etiology possible vasovagal as the patient was having issues with nausea. 2 minutes of CPR was performed on the patient. Is not clear to me whether this was a cardiac or neurologic event. Echocardiogram was done. Enzymes are negative. Cardiac rhythm is sinus. History of any chest pain. The patient also had an EEG. MRI of the brain was noted and the findings are nonspecific. No acute stroke. No intracranial masses. EG was also abnormal and suggestive of cortical dysfunction. Nevertheless, there was no evidence of any seizure activity. Echocardiogram is also within normal limits. Trauma to face secondary to fall from syncope. Workup revealed no fractures Possible early right lower lobe pneumonia, possible aspiration Leukocytosis secondary to above Mild acute renal failure Urine drug screen positive for marijuana History of hypertension Plan: Repeat chest x-ray showed no clear evidence of pneumonia. We'll discontinue the IV Unasyn and put the patient on Augmentin for the next 5 days Patient is currently on room air oxygen patient is going to complete the neuro and cardiac workup Echocardiogram is completed and the findings were essentially within normal EEG showing cortical dysfunction without any seizure activity MRI of the brain was nonspecific Neurology consultation Cardiology consultation Pro calcitonin is nonelevated Chest x-ray findings are likely atelectatic in nature Stable and on room air
--- NOTE | 2023-04-13 14:23 | P.PN ---
Subjective Progress Note Date: 04/13/23 I am seeing the patient for the first time during this admission. Please refer to Dr. Davis's notes for further details. The patient is accompanied with his and it seems he had a syncopal episode. It seems he was at [facility] and was felt hot so he he stood up and was walking then passed out. He hit face and require stiches of the right lip. He did have urinary incontinence but no jerking extremities, tongue bite or bowel incontinence. Denies similar episodes in the past. Denies history of seizures. Objective - Vital Signs Vital signs: Vital Signs Temp 98.0 F 04/13/23 08:18 Pulse 68 04/13/23 11:15 Resp 16 04/13/23 11:15 BP 162/73 04/13/23 11:15 Pulse Ox 98 04/13/23 11:15 FiO2 Intake & Output 04/12/23 04/13/23 04/13/23 18:59 06:59 18:59 Intake Total 470 118 Output Total 600 1275 200 Balance -130 -1275 -82 Intake: Oral 470 118 Output: Urine 600 1275 200 Other: Voiding Method Toilet Urinal Urinal Urinal # Voids 2 1 - Exam General: Lying in bed and is not in acute distress. Neuro: The patient is awake, alert, oriented to self, place and time. Is following simple commands. No aphasia or neglect. Pupils are round, equal and reactive to light. Visual peres are full to confrontation. EOM is intact and no nystagmus. No facial weakness. No dysarthria. Motor: Strength is 5/5 throughout. - Labs CBC & Chem 7: 04/13/23 08:52 04/13/23 08:52 Labs: Abnormal Lab Results - Last 24 Hours (Table) 04/13/23 04/13/23 Range/Units 08:52 08:52 WBC 16.3 H (3.8-10.6) k/uL Neutrophils # 12.9 H (1.3-7.7) k/uL Potassium 3.4 L (3.5-5.1) mmol/L Chloride 111 H (98-107) mmol/L Carbon Dioxide 21 L (22-30) mmol/L Glucose 120 H (74-99) mg/dL Microbiology - Last 24 Hours (Table) 04/10/23 23:30 Blood Culture - Preliminary Blood 04/10/23 23:15 Blood Culture - Preliminary Blood Assessment and Plan Assessment: * New onset syncope with possible ? Cardiac arrest, requiring CPR for 1 minute by family members. Rule out vasovagal syncope versus seizure versus cardiac arrhythmia. Patient did not have any convulsive activity, although he did lose control of urine and had a prolonged postictal state of about 20-30 minutes, during which time he was agitated, aggressive, suggestive of possible seizure. No prior episode of seizures or syncopal. * Hypertension * Marijuana use * Denies alcoholism, although blood alcohol level was 25. Plan: * MRI of the brain with and without contrast revealed no evidence of intracranial mass, acute/subacute infarct or abnormal enhancement. Scattered blooming artifact foci throughout the brain tristan-white junction. Suggestive of microhemorrhage. Minimal scattered white matter change.Per Dr. Davis, there is questionable area of abnormal DWI in the right parietal cortex. I spoke with reading radiologist (Dr. Wheeler) and he stated the right parietal region is artifact. Also patient had abnormal DWI in bilateral frontal per radiologist and is T2-shine thru. * EEG was reported as abnormal due to intermittent focal slowing in bitemporal region, left more than right, suggestive of focal cortical neuronal dysfunction. No definitive epileptiform activity was seen. If your suspicion for seizures is high, suggest prolonged, sleep deprived EEG. * Hold off on antiepileptic medication at this time, as it is not very clear, if this was a seizure or a syncope pending further workup. I agree with Dr. Davis about holding off antiepileptic for now since no clear seizure. I will get a prolonged EEG as outpatient and to be coordinated by server support technician. Also recommend to follow-up with neurologist as outpatient within 1-2 weeks. * Telemetry monitoring rule out arrhythmia. * Cardiology input appreciated. Patient to be considered for event monitor placement versus loop recorder. * 2-D echo: It is reported as enlarged right ventricle with the preserved function. Normal left ventricular size and function. * Patient was informed of [place] state law of no driving for 6 months, climbing ladders, operating dangerous machinery or unsupervised swimming. The plan is discussed with patient and his who is at bedside. There is no further neurological work-up. Time with Patient: Less than 30
--- NOTE | 2023-04-13 15:19 | P.PN ---
Subjective Progress Note Date: 04/13/23 Chief complaint: Syncopal episode History of present illness: The patient is a 67-year-old gentleman with a past medical history significant for hypertension was brought to the emergency department with syncope. The patient was in his usual state of health until earlier today when he was at [employer] with his family eating pizza. He stopped because he felt nauseated. He walked outside. Subsequently he felt dizzy and lightheaded and subsequently he lost his consciousness for few minutes. The patient was unresponsive for about a few minutes. There was a concern about cardiac arrest and CPR was initiated by a bystander for about 2 minutes. When EMS arrived the patient was alert and oriented and was stable. He was brought to the emergency department for further evaluation. He underwent further investigation including an EKG showing sinus mechanism with left anterior fascicular block and chest x-ray showed no acute abnormalities and also he underwent serial cardiac enzymes came in to be unremarkable and chest x-ray came in to be unremarkable and also computed tomography scan of the brain came in to be unremarkable. The patient was seen by the neurology service. He did not have any episodes of syncope before and this is a first-time. No cardiovascular history besides hypertension. No coronary artery disease or congestive heart failure or cardiac arrhythmia. No symptoms of chest pain or chest discomfort or any shortness of breath or any feeling of heart racing or fluttering. Definitely he developed injury in the face because of the syncope. The examination is remarkable for stable vital signs beside mildly elevated blood pressure. 04/12 Patient is seen today in follow-up. Echocardiogram remains pending. Pressure 77/83, heart rate in the 70s. Patient was started on losartan. 04/13 Blood pressure 162/89, heart rate in the 50s and 60s. WBC 16.3, hemoglobin 16.7, creatinine 0.91. Potassium 3.4 Echocardiogram reveals enlarged RV with preserved function. Normal LV size and function. The cardiovascular examination remarkable for regular rhythm with a soft systolic murmur at the right and left upper sternal border and clear breathing sounds bilaterally and no carotid bruit and no lower extremity edema Assessment Syncopal episode Hypertension Injury related to the syncope. Plan Continue losartan 50 mg daily Replace potassium Obtain 14 day Event monitor the obtain from [facility]. Blood p ressure 162/89, heart rate in the 50s and 60s. Patient is cleared for discharge and will follow up with Dr. Nurse practitioner note has been reviewed, I agree with the documented findings and plan of care. Patient was seen and examined. Objective - Vital Signs Vital signs: Vital Signs Temp 98.0 F 04/13/23 08:18 Pulse 68 04/13/23 08:18 Resp 18 04/13/23 08:18 BP 162/89 04/13/23 08:18 Pulse Ox 94 L 04/13/23 08:18 FiO2 Intake & Output 04/12/23 04/13/23 04/13/23 18:59 06:59 18:59 Intake Total 470 118 Output Total 600 1275 Balance -130 -1275 118 Intake: Oral 470 118 Output: Urine 600 1275 Other: Voiding Method Toilet Urinal Urinal Urinal # Voids 2 1 - Labs CBC & Chem 7: 04/13/23 08:52 04/13/23 08:52 Labs: Abnormal Lab Results - Last 24 Hours (Table) 04/12/23 04/13/23 04/13/23 Range/Units 08:12 08:52 08:52 WBC 16.3 H (3.8-10.6) k/uL Neutrophils # 12.9 H (1.3-7.7) k/uL Potassium 3.4 L (3.5-5.1) mmol/L Chloride 110 H 111 H (98-107) mmol/L Carbon Dioxide 20 L 21 L (22-30) mmol/L Glucose 161 H 120 H (74-99) mg/dL Microbiology - Last 24 Hours (Table) 04/10/23 23:30 Blood Culture - Preliminary Blood 04/10/23 23:15 Blood Culture - Preliminary Blood
--- NOTE | 2023-04-13 16:00 | P.PN ---
Subjective Progress Note Date: 04/13/23 Principal diagnosis: Reason for follow-up is leukocytosis/aspiration pneumonitis Patient is a 67-year-old male with no significant past medical history patient was found to be unresponsive at home and underwent CPR for 2 minutes patient became combative and that he came to the emergency room for evaluation, patient noticed to have elevated white count chest x-ray with the patient right basilar opacity concerning for possible aspiration pneumonitis. On today's evaluation that is 04/13/2023, the patient remains to be afebrile, the patient is breathing comfortably on room air and the patient denies any shortness of breath, the patient denies chest pain did have occasional cough but no sputum production, patient denies any nausea/vomiting abdominal pain or diarrhea. Patient white count is 16.3, creatinine 0.91 procalcitonin was 0.99 Objective - Vital Signs Vital signs: Vital Signs Temp 98.0 F 04/13/23 08:18 Pulse 68 04/13/23 11:15 Resp 16 04/13/23 11:15 BP 162/73 04/13/23 11:15 Pulse Ox 98 04/13/23 11:15 FiO2 Intake & Output 04/12/23 04/13/23 04/13/23 18:59 06:59 18:59 Intake Total 470 118 Output Total 600 1275 200 Balance -130 -1275 -82 Intake: Oral 470 118 Output: Urine 600 1275 200 Other: Voiding Method Toilet Urinal Urinal Urinal # Voids 2 1 - Exam GENERAL DESCRIPTION: An elderly male lying in bed in no distress RESPIRATORY SYSTEM: Unlabored breathing , decreased breath sounds at bases HEART: S1 S2 regular rate and rhythm , ABDOMEN: Soft , no tenderness EXTREMITIES: No edema feet - Labs CBC & Chem 7: 04/13/23 08:52 04/13/23 08:52 Labs: Abnormal Lab Results - Last 24 Hours (Table) 04/13/23 04/13/23 Range/Units 08:52 08:52 WBC 16.3 H (3.8-10.6) k/uL Neutrophils # 12.9 H (1.3-7.7) k/uL Potassium 3.4 L (3.5-5.1) mmol/L Chloride 111 H (98-107) mmol/L Carbon Dioxide 21 L (22-30) mmol/L Glucose 120 H (74-99) mg/dL Microbiology - Last 24 Hours (Table) 04/10/23 23:30 Blood Culture - Preliminary Blood 04/10/23 23:15 Blood Culture - Preliminary Blood Assessment and Plan (1) Leukocytosis Current Visit: Yes Status: Acute Code(s): D72.829 - ELEVATED WHITE BLOOD CELL COUNT, UNSPECIFIED SNOMED Code(s): 554782852 (2) Aspiration pneumonitis Current Visit: Yes Status: Acute Code(s): J69.0 - PNEUMONITIS DUE TO INHALATION OF FOOD AND VOMIT SNOMED Code(s): 017544973 Plan: 1patient was brought into the hospital (the patient did have collapse outside his house patient has been assisted with the CPR on presentation to the hospital patient was afebrile however did have elevated white count did have left sided infiltrate and elevated procalcitonin 0.99 concern for possible aspiration pneumonitis is currently no other obvious focus of infection UA was negative abdominal soft clinical examination and evidence of any joint swelling or cellulitis 2-patient to continue with Unasyn 3 g every 6 hours and monitor clinical course closely Dictation was produced using Alfred dictation software. please excuse any grammatical, word or spelling errors. Time with Patient: Less than 30
[2023-04-13] MEDS: POTASSIUM CHLORIDE ER 20 MEQ TAB.ER PO STA (16:18)
--- NOTE | 2023-04-15 18:30 | CDI ---
Documentation Clarification Form Date: From: [employer] [employer] Phone: Admit Date: 04/11/2023 12:39:00 AM Patient Name: Rex Giraldo Visit Number: [id number] Discharge Date: 04/13/2023 04:27:00 PM ATTENTION: The Clinical Documentation Specialists (CDI) and [facility] Coding Staff appreciate your assistance in clarifying documentation. Please respond to the clarification below the line at the bottom and electronically sign. The CDI & [facility] Coding staff will review the response and follow-up if needed. Please note: Queries are made part of the Legal Health Record. If you have any questions, please contact the author of this message via ITS. Dr. Jane E Sheet Patient metsepsiscriteria at 2252 is documented per ED Documentation which may lack sufficient clinical evidence/support in the medical record. Additional clarification is requested. History/Risk Factors: 67yo M, syncope, LAFB, tinnitus, systolic murmur, ETOH use w BAL 25, PVC, chronic leukocytosis, lacerations of face, HTN, DARYA, asp PNA Clinical Indicators: WBC: 04/11 24.4 04/12 17.4 04/13 16.3 Lactic acidosis: 3.8 Blood Culture: No growth after 72 Hours Vitals: T 97.6 F VT 85 Resp 18 BP 150/82 Treatment: Patient started on vancomycin and cefepime. Given 2 L fluid bolus and started onmaintenancefluids at 130 mL/hr. After work up and study, please clarify which diagnosis is most appropriate? [ ] Sepsis ruled out [ ] Sepsis treated prophylactically [ ] Sepsis is a valid diagnosis as evidence by the following: (Please add rationale): [ ] Non-Infectious SIRS due to (please specify) __pt had leukocytosis, but no significant fever, no tachypnea, had few periods of increased heart rate to 90- 92 otherwise was not elevated, , the suspicion for sepsis was low. [ x ] Other, please specify [ ] Unable to determine (Template Last Reviewed: March 2023) MTDD
--- NOTE | 2023-04-18 12:28 | P.DS ---
Providers Date of admission: 04/11/23 00:39 Expected date of discharge: 04/13/23 Attending physician: Alissa Chauhan Consults: 04/11/23 00:20 Consult Physician Routine Consulting Provider: [facility] Consult Reason/Comments: possible cardiac arrest outpatient prior to arrival Do you want consulting provider notified?: Yes Consult Physician Stat Consulting Provider: Kosta Thorpe Consult Reason/Comments: possible cardiac arrest, sepsis Do you want consulting provider notified?: Already Contacted 04/11/23 08:57 Consult Physician Routine Consulting Provider: Quincy Davis Consult Reason/Comments: r/o seizure Do you want consulting provider notified?: Yes 04/12/23 06:32 Consult Physician Routine Consulting Provider: Latrice Lord Consult Reason/Comments: leukocytosis and antibiotic managmenet Do you want consulting provider notified?: Yes Primary care physician: Slick Smith [facility] Course: Final diagnosis periods Of unresponsiveness, likely syncope, suspicious for cardiac arrest status post CPR is low, associated with combativeness confusion and urine incontinence, rule out seizure as well. MRI of the brain showing microhemorrhages is noted to be artifact after further. Nausea and vomiting, possible acute gastritis Chronic leukocytosis as per history Concerns of possible sepsis, present on admission secondary to possible aspiration pneumonia, sepsis ruled out with no obvious signs of pneumonia Mild acute kidney injury Mild transaminitis Discharge disposition Patient is being discharged in a stable condition with guarded prognosis to home . Patient will follow-up with Dr. Smith in the outpatient setting upon discharge. Patient is to continue with no alcohol intake and close outpatient follow-up with neurology as scheduled. Patient to have prolonged EEG outpatient. Patient refused to initiate any antiseizure medication at this time. Total time taken is greater than 35 minutes. Hospital course This is a 67-year-old male who was recently admitted with an episode Of syncope with multiple medical consultations following. Neurology underwent workup which was negative and patient likely had a syncopal episode with possible vasovagal response. Patient did have CPR performed on him as bystanders at the alliance party that he was undergoing cardiac arrest. Patient did have an episode after the CPR of combativeness and confusion with urinary incontinence with concerns of possible seizure. EEG done and no epileptiform discharges noted. Patient did not want to initiate seizure medication at this time. Alcohol was 25 although patient refused alcohol intake. Neurology evaluated and recommending outpatient follow- up with prolonged he is patient evaluated by cardiology and no further workup at this time recommending outpatient follow-up. There were concerns of aspiration pneumonia and patient was started on antibiotics with infectious disease following. Sepsis ruled out. Patient was continued on IV Zosyn and will continue on oral Augmentin twice daily for the next 5 days to complete the course. Most recent chest x-ray shows improvement with concerns of possible atelectasis. Encouraged incentive spirometer. Patient has been cleared by consultations for discharge. Please refer to consultation notes for further HPI. Currently no reports of chest pain, shortness of breath, or palpitations. Patient is afebrile. No reports of nausea or vomiting and patient is tolerating diet. Patient will be discharged home today. Physical exam: Gen: This is a 67-year-old male who is awake, alert and oriented 3, well- developed, well-nourished HEENT: Head is atraumatic, normocephalic. Pupils equal, round. Sclerae is anicteric. NECK: Supple. No JVD. No lymphadenopathy. No thyromegaly. LUNGS: Clear to auscultation. No wheezes or rhonchi. No intercostal retractions. HEART: Regular rate and rhythm. No murmur. ABDOMEN: Soft. Bowel sounds are present. No masses. No tenderness. EXTREMITIES: No pedal edema. No calf tenderness. NEUROLOGICAL: Patient is awake, alert and oriented x3. Cranial nerves 2 through 12 are grossly intact. Please refer to medication reconciliation sheet for a list of medications. The impression and plan of care has been dictated by Chelsie Ling, Nurse Practitioner as directed. Dr. michelle MD I have performed a history and examination and MDM of this patient, discussed the same with the dictator, and agree with the dictator's assessment and plan as written ,documented as a scribe. Based on total visit time, I have performed more than 50% of the visit. Patient Condition at Discharge: Stable Plan - Discharge Summary Discharge Rx Participant: Yes New Discharge Prescriptions: Continue Quietum Tinnitus Supplement 1 cap PO DAILY Losartan [Cozaar] 50 mg PO DAILY Tinnitus 911 Supplement 1 cap PO DAILY Discontinued amLODIPine [Norvasc] 10 mg PO DAILY Discharge Medication List Losartan [Cozaar] 50 mg PO DAILY 04/11/23 [History] Quietum Tinnitus Supplement 1 cap PO DAILY 04/11/23 [History] Tinnitus 911 Supplement 1 cap PO DAILY 04/11/23 [History] Follow up Appointment(s)/Referral(s): Slick Smith MD [Primary Care Provider] - 04/15/23 1:00 pm () Svitlana Gamino MD [Medical Doctor] - 1 Week (The hospital will send over paperwork to office, and once the doctor has reviewed the information, the office will give you a call. 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
== END 2023-04-13 16:27 | disposition home or self-care (01) | DRG 682 ==
LOC: EC 21:05 → 2SICU 04-11 00:39 → 3SCARD 04-11 10:20
PROVIDERS: ADMIT Hospitalist; ATTEND Hospitalist
PROC: 3E0T3BZ Introduction of Anesthetic Agent into Peripheral Nerves and Plexi, Percutaneous Approach (ICD-10-PCS; principal; 2023-04-11)
PROC: 0HQ1XZZ Repair Face Skin, External Approach (ICD-10-PCS; 2023-04-11)
DX: N17.9 Acute kidney failure, unspecified (principal); J69.0 Pneumonitis due to inhalation of food and vomit; E87.20 Acidosis, unspecified; I11.9 Hypertensive heart disease without heart failure; G93.89 Other specified disorders of brain; F10.90 Alcohol use, unspecified, uncomplicated; D72.828 Other elevated white blood cell count; S01.511A Laceration without foreign body of lip, initial encounter; S01.21XA Laceration without foreign body of nose, initial encounter; I49.3 Ventricular premature depolarization; I44.4 Left anterior fascicular block; H93.19 Tinnitus, unspecified ear; R32 Unspecified urinary incontinence; R01.1 Cardiac murmur, unspecified; W18.39XA Other fall on same level, initial encounter; Y90.1 Blood alcohol level of 20-39 mg/100 ml; Y92.838 Other recreation area as the place of occurrence of the external cause; Z86.74 Personal history of sudden cardiac arrest; Z11.52 Encounter for screening for COVID-19; Z91.013 Allergy to seafood; Z79.899 Other long term (current) drug therapy
CPT/HCPCS: 12013; 36415; 70450; 70486; 70553; 71045; 71046; 71275; 72125; 72170; 74174; 80048; 80053; 80306; 80320; 81003; 82140; 83036; 83605; 83735; 83880; 84145; 84484; 85025; 85610; 85730; 86140; 87040; 87636; 90471; 90715; 93005; 93306; 95816; 96361; 96365; 96366; 96367; 96372; 96375; 96376; 99291